=== PATIENT | female | born 1980 | race Caucasian/White ===

== ENCOUNTER 2017-01-05 17:21 | Emergency (ER) | payer OTHER, MEDICARE ==
[~2017-01-05] VITALS: Ht 162.6 cm; Wt 103.4 kg
[~2017-01-05 17:21] MED LIST: ADVAIR DISKU 11 UNIT; ASPIRIN EC81 M1 PO; ATIVAN1 M1 PO; BACLOFEN10 M1 PO; ESTRADIOL1 M1 PO; FAMOTIDINE20 MG PO; FLUTICASON0.05 MG/Ac NASB; HYDROXYZINE HCL50 M1 PO; IBUPROFEN IB200 MG PO; LIPITOR20 M2 PO; LOMOTIL 0.025 M1 TAB PO; MEDROL4 M2 PO; MOTRIN 600 MG600 MG; PERCOCET 325 MG1 TA2 PO; PERCOCET 5-3251 EACH PO; PREDNISONE10 M2 PO; PROAIR HFA8.5 GM INH; PROTONIX 40MG T40 MG; REGLAN10 M1 PO; SYMBICORT 160/41 PUF INH; TOPAMAX50 M1 PO; TOPROL XL25 MG; TRAMADOL50 MG PO; VICODIN 5-3001 EACH PO; VITAB121000 PO; VIVELLE-DO0.05 MG/24 TOP; ZOFRAN4 M2 PO
[2017-01-05 18:56] LABS: ABSOLUTE BASOPHIL COUNT 0 /CUMM (0.0-0.2); ABSOLUTE EOSINOPHIL COUNT 0.1 /CUMM (0.0-0.7); ABSOLUTE GRANULOCYTE CT 1.6 /CUMM (1.4-6.5); ABSOLUTE LYMPH COUNT 2.1 /CUMM (1.2-3.4); ABSOLUTE MONOCYTE COUNT 0.3 /CUMM (0.10-0.60); BASOPHIL % 0.5 % (0.0-2.0); EOSINOPHIL % 1.4 % (0-5); GRANULOCYTE % 38.3 % (42.2-75.2); HEMATOCRIT 41.8 % (37-47); MEAN CORPUSCULAR HGB 29.1 PG (27.0-31.0); MEAN CORPUSCULAR HGB CONC 33.2 G/DL (33.0-37.0); MEAN CORPUSCULAR VOLUME 87.8 FL (81.0-99.0); MEAN PLATELET VOLUME 8.2 FL (7.4-10.4); PLATELET COUNT 215 /CUMM (130-400); RBC DISTRIBUTION WIDTH 12.8 % (11.5-14.5); RED BLOOD CELL CT 4.76 /CUMM (4.20-5.40); WHITE BLOOD CELL COUNT 4.1 /CUMM (4.8-10.8)
[2017-01-05] MEDS ORDERED: TOPAMAX100 M1 PO (19:10)
[2017-01-05] MEDS ORDERED: ALBUTEROL2.5 MG/3 M INH/SOL (19:11)
[2017-01-05] MEDS ORDERED: MONTELUKAST SOD10 M1 PO (19:11)
[2017-01-05] MEDS ORDERED: TOPROL XL25 M1 PO (19:13)
[2017-01-05] MEDS ORDERED: GABAPENTIN300 M2 PO (19:14)
[2017-01-05] MEDS ORDERED: VITAJOY2.5 MG PO (19:14)
[2017-01-05] MEDS ORDERED: POLYETHYLENE GL17 GM PO (19:14)
[2017-01-05] MEDS ORDERED: COLACE100 M1 PO (19:14)
[2017-01-05] MEDS ORDERED: PANTOPRAZOLE SO40 M1 PO (19:14)
[2017-01-05] MEDS ORDERED: ATIVAN0.5 M1 PO (19:15)
[2017-01-05] MEDS ORDERED: HYDROCHLOROTH12.5 M2 PO (19:15)
[2017-01-05] MEDS ORDERED: PAROXETINE HCL40 M1 PO (19:15)
[2017-01-05] MEDS ORDERED: REGLAN5 M1 PO (19:16)
[2017-01-05] MEDS ORDERED: VITAMIN B-121000 MC3 PO (19:18)
--- NOTE | 2017-01-05 19:49 | ED GI/GU/ABDOMINAL COMPLAINT ---
History of Present Illness General Chief Complaint: Abdominal Pain/Flank Pain Stated Complaint: NO BM [id number] Source: patient, old records Exam Limitations: no limitations Vital Signs & Intake/Output Vital Signs & Intake/Output Vital Signs Date Time Temp Pulse Resp B/P B/P Pulse O2 O2 Flow FiO2 Mean Ox Delivery Rate 01/06 2128 98.0 88 18 110/56 99 Room Air 01/05 1956 69 18 104/51 100 Room Air 01/05 1856 Nasal 2.0L Cannula 01/05 1743 96.9 89 15 111/78 98 Room Air Room Air Allergies Coded Allergies: Penicillins (Intermediate, HIVES 01/05/17) amoxicillin (Intermediate, HIVES 01/05/17) lactose (Intermediate, HIVES, LACTOSE INTOLERANT 01/05/17) latex (Intermediate, HIVES 01/05/17) valacyclovir (From VALTREX) (Intermediate, HIVES 01/05/17) Reconcile Medications Albuterol Sulfate (Proair Hfa) 90 MCG HFA.AER.AD 2 PUF INH PRN ASTHMA ( Reported) Albuterol Sulfate 2.5 MG/3 ML (0.083 %) VIAL.NEB 1 Vial INH/KYE TID ASTHMA ( Reported) Aspirin (Ecotrin*) 81 MG TABLET.DR 1 TAB PO DAILY HEART/BLOOD (Reported) Atorvastatin Calcium (Lipitor) 20 MG TABLET 1 TAB PO DAILY CHOLESTEROL ( Reported) Cyanocobalamin (Vitamin B-12) 1,000 MCG TABLET 1 TAB PO DAILY SUPPLEMENT ( Reported) Docusate Sodium (Colace) 100 MG CAPSULE 1 CAP PO DAILY STOOL SOFTENER ( Reported) Gabapentin 300 MG CAPSULE 2 CAP PO TID SEIZURES & NEUROPATHY (Reported) Hydrochlorothiazide 12.5 MG TABLET 1 TAB PO DAILY BP (Reported) Lorazepam (Ativan) 0.5 MG TABLET 1 TAB PO DAILY NEEDED PRN ANXIETY ( Reported) Melatonin (Vitajoy) 2.5 MG TAB.CHEW 1 TAB PO QPM SUPPLEMENT (Reported) Meloxicam (Mobic) 15 MG TABLET 1 TAB PO DAILY PRN pain Metoclopramide HCl (Reglan) 5 MG TABLET 1 TAB PO TID N/V (Reported) Metoprolol Succ XL (Toprol XL) (Unknown Strength) TAB (Unknown Dose) PO TID BP (Reported) Montelukast Sodium 10 MG TABLET 1 TAB PO DAILY ALLERGIES (Reported) Pantoprazole Sodium 40 MG TABLET.DR 1 TAB PO DAILY GI (Reported) Paroxetine HCl 40 MG TABLET 1 TAB PO DAILY MENTAL HEALTH (Reported) Polyethylene Glycol 3350 17 GRAM POWD.PACK 1 PAC PO DAILY GI (Reported) Topiramate (Topamax) 100 MG TABLET 1 TAB PO BID SEIZURES & DEPRESSION ( Reported) Triage Note: PT TO ED FOR C/C OF RUQ AND RLQ ABD STABBING PAIN THAT STARTED 1 WEEK AGO (WAS SEEN AND DISCHARGED FROM [facility] ON FRIDAY), CONSTIPATION, HAS NOT HAD BM FOR 3 WEEKS. +NAUSEA, BURNING SENSATION THAT RADIATES FROM RUQ TO MIDEPIGASTRIC AREA, WORSE AFTER EATING. INCREASED URINATION. Triage Nurses Notes Reviewed? yes LMP (ages 10-50): hysterectomy ? N Is pt currently ? No Onset: Gradual Duration: week(s): Timing: recent history Quality/Severity: moderate, stabbing Location: right lower quadrant, right upper quadrant Prior Abdominal Problems: similar symptoms HPI: 36-year-old female with history of COPD on 2 L home oxygen, 2 MIs s/p stents, ovarian cancer s/p hysterectomy presents to emergency department complaining of right-sided abdominal pain 1 month. Abdominal pain is described as constant, sharp stabbing, located on her right side. The patient has been seen and evaluated at [facility] twice, she required admission on her second visit for abdominal pain. She has had 3 enemas this month which helped as she is not able to have a bowel movement at home without enemas. Patient had a small hard bowel movement this morning however she has not had a bowel movement on her own for 3 weeks prior, last bowel movement prior to today was 2 weeks ago with an enema. She is admitted at [facility] from December 31-, which time she states that they gave her IVFs and clear liquid diet and were unable to come to a conclusion about her abdominal pain. He was given a GI referral however her appointment is scheduled for 01/13/17 and has not been able to see the specialist. Following the IV fluids she got at [facility] reveals the patient feels as though her lower extremities have been swollen. She had a CT scan of her abdomen on January 02 which showed rectocele. The patient states that upon discharge her abdominal pain had been unchanged, patient is still currently unchanged. The patient denies fevers, chills, vaginal discharge, hematuria, dysuria, chest pain, dyspnea. (BOWEN FRITZ PA-C) Past History Travel History Traveled to [place] past 21 day No Medical History Any Pertinent Medical History? 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 No (BOWEN FRITZ PA-C) Review of Systems Review of Systems Constitutional: Reports: no symptoms. EENTM: Reports: no symptoms. Respiratory: Reports: no symptoms. Cardiovascular: Reports: no symptoms. GI: Reports: see HPI. Genitourinary: Reports: no symptoms. Musculoskeletal: Reports: no symptoms. Skin: Reports: no symptoms. Neurological/Psychological: Reports: no symptoms. Hematologic/Endocrine: Reports: no symptoms. Immunologic/Allergic: Reports: no symptoms. All Other Systems: Reviewed and Negative (BOWEN FRITZ PA-C) Physical Exam Physical Exam Gastrointestinal: SEE BELOW Comments: Well-developed well-nourished person in no acute distress HEENT: HEAD is atraumatic, normocephalic Neck: Supple, normal range of motion Back: Nontender, no CVA tenderness. Full range of motion Cardiovascular: Regular rate and rhythms no murmurs rubs or gallops Respiratory: No respiratory distress. Patient speaking in full complete sentences. Breath sounds clear to auscultation bilaterally: NO W/R/R Abdomen: Obese, Soft, nontender mild distention, no appreciable organomegaly. Normal bowel sounds. No rebound/guarding, No appreciable enlargement of the abdominal aorta, No ascites. Extremity: No edema, full range of motion of extremities Neuro: Alert oriented x3, motor sensory normal, There were no obvious focal neurologic abnormalities. Skin: No appreciable rash on exposed skin, skin is warm and dry. Psych: Mood and affect is normal, memory and judgment is normal. Core Measures ACS in differential dx? Yes Severe Sepsis Present: No Septic Shock Present: No (CATRINA BECKWITH,BOWEN KIMBALL) Progress Differential Diagnosis: AMI, appendicitis, biliary colic, bowel obstruction, cholecystitis, diverticulitis, endometritis, inflamm bowel dis, kidney stone, pancreatitis, PUD/GERD, SBO, UTI/pyelo Plan of Care: Orders Procedure Date/time Status URINE 01/05 1750 Complete URINALYSIS 01/05 1750 Complete TROPONIN LEVEL 01/05 1750 Complete LIPASE 01/05 1750 Complete COMPREHENSIVE METABOLIC PANEL 01/05 1750 Complete CBC WITHOUT DIFFERENTIAL 01/05 1750 Complete EKG 01/05 1750 Active Laboratory Tests 01/05/17 1900: Urine Color YEL, Urine Clarity CLEAR, Urine pH 6.0, Ur Specific [place] 1.025, Urine Protein NEG, Urine Ketones NEG, Urine Nitrite NEG, Urine Bilirubin NEG, Urine Urobilinogen 0.2, Ur Leukocyte Esterase NEG, Ur Microscopic SEDIMENT EXAMINED, Urine RBC 3-5, Urine WBC 1-3 H, Ur Epithelial Cells MANY H, Urine Mucus MANY H, Urine Hemoglobin TRACE-LYSED, Urine Glucose NEG, Urine Test NEGATIVE 01/05/17 1850: Anion Gap 11, Estimated GFR > 60, BUN/Creatinine Ratio 18.6, Glucose 92, Calcium 9.9, Total Bilirubin 0.7, AST 34, ALT 40, Alkaline Phosphatase 100, Troponin I < 0.01, Total Protein 6.8, Albumin 4.0, Globulin 2.8, Albumin/Globulin Ratio 1.4, Lipase 92, CBC w Diff NO MAN DIFF REQ, RBC 4.76, MCV 87.8, MCH 29.1, RDW 12.8, MPV 8.2, Gran % 38.3 L, Lymphocytes % 52.1 H, Monocytes % 7.7, Eosinophils % 1.4, Basophils % 0.5, Absolute Granulocytes 1.6, Absolute Lymphocytes 2.1, Absolute Monocytes 0.3, Absolute Eosinophils 0.1, Absolute Basophils 0, PUBS MCHC 33.[address] The patient recently had CT scan 3 days ago which was within normal limits at that and a rectocele per patient. The patient has been seen and evaluated several times for this abdominal pain over the past month, this abdominal pain is not acute. The patient has yet to see her GI referral, she has an appointment established for January 13. The patient has no abdominal tenderness on exam, she appears well, she is in no acute distress. Abdominal plain film shows nonobstructing gas and stool present. The patient is currently on Colace. The patient was discussed with Dr. Gaytan. We will add on MiraLAX as further laxative for constipation. The patient was educated to initiate a clear liquid drive for the next 24 hours to allow for bowel rest. She will call her GI referral for possible early appointment this week. She will return with any worsening symptoms or concerns. The patient is in agreement with the plan of care. (CATRINA BECKWITH,BOWEN KIMBALL) Diagnostic Imaging: Viewed by Me: Radiology Read. Discussed w/RAD: Radiology Read. Radiology Impression: PATIENT: AMANDA MARCIAL PRESENT AGE: 36 PATIENT ACCOUNT NO: [id number] : 82 LOCATION: [facility] ORDERING PHYSICIAN: BOWEN FRITZ PA-C SERVICE DATE: 01/05/17 EXAM TYPE: RAD - [id number] VIEW EXAMINATION: XR ABDOMEN CLINICAL INDICATION: Rule out constipation, bowel perforation. Infrequent bowel movements. Right abdominal pain. COMPARISON: CT abdomen pelvis 11/01/2015 TECHNIQUE: AP supine views of the abdomen. FINDINGS: Lung bases are clear. No evidence of pneumoperitoneum although only supine views were obtained. Cholecystectomy clips in the right upper quadrant. There is a paucity of abdominal bowel gas. Gas and stool are seen throughout the colon is far distally as the rectum. IMPRESSION: Nonobstructive abdominal bowel gas pattern. Evaluation for pneumoperitoneum is limited as only supine views were obtained. DICTATED BY: ALMA WATTS MD DATE/TIME DICTATED:01/05/172032 GRADUATION COACH:SATNAM DATE/TIME TRANSCRIBED:01/05/172032 CONFIDENTIAL, DO NOT COPY WITHOUT APPROPRIATE AUTHORIZATION. <Electronically signed in Other Vendor System> SIGNED BY: ALMA WATTS MD 01/05/172037 Initial ED EKG: none (CATRINA BECKWITH,BOWEN KIMBALL) Departure Departure Disposition: HOME OR SELF CARE Condition: Stable Clinical Impression Primary Impression: Constipation Secondary Impressions: Abdominal pain Referrals: DANIEL COULTER MD (PCP/Family) Additional Instructions: Continue to take Colace as prescribed. Additionally take over the counter MiraLAX daily as needed for constipation. Initiate a clear liquid diet for the next 24 hours. Take meloxicam as prescribed as needed for pain. Call your GI doctor tomorrow to try to move you appointment to this week, otherwise keep your scheduled appointment for January 13. Return with any worsening symptoms or concerns. Please note that there might be incidental findings in your evaluation that are unrelated to the current emergency department visit. Please notify your primary care doctor about this emergency department visit in order to obtain and review all of the testing performed so that these incidental findings can be monitored as needed. If you had an x-ray performed, please understand that some fractures may not be seen on the initial set of x-rays. If your symptoms persist you might need a repeat set of x-rays to check for such a fracture. If you had a laceration evaluated, please understand that foreign bodies such as glass or wood may not be visible to the naked eye or on plain x-rays. If the wound becomes red, swollen, increasingly more painful or if there is any drainage from the wound, please have it reevaluated by a physician for the possibility of a retained foreign body. If you're unable to follow up as outlined in the discharge instructions please return to the emergency department. Thank you for choosing the [facility] Emergency Department for your care. It was a pleasure to serve you today. Departure Forms: Customer Survey General Discharge Information Prescriptions: Current Visit Scripts Meloxicam (Mobic) 1 TAB PO DAILY PRN pain #15 TAB (CATRINA BECKWITH,BOWEN KIMBALL) PA/STONE DERRICKMAN AND RIGGER Co-Sign Statement Statement: ED Attending supervision documentation- [] I saw and evaluated the patient. I have also reviewed all the pertinent lab results and diagnostic results. I agree with the findings and the plan of care as documented in the PA's/STONE DERRICKMAN AND RIGGER's documentation. [X] I have reviewed the ED Record and agree with the PA's/STONE DERRICKMAN AND RIGGER's documentation. [] Additions or exceptions (if any) to the PAs/STONE DERRICKMAN AND RIGGER's note and plan are summarized below: [] (ESAU BARRIGA,JULES Stoll)
--- NOTE | 2017-01-05 20:38 | RADIOLOGY REPORT ---
EXAMINATION: XR ABDOMEN CLINICAL INDICATION: Rule out constipation, bowel perforation. Infrequent bowel movements. Right abdominal pain. COMPARISON: CT abdomen pelvis 11/01/2015 TECHNIQUE: AP supine views of the abdomen. FINDINGS: Lung bases are clear. No evidence of pneumoperitoneum although only supine views were obtained. Cholecystectomy clips in the right upper quadrant. There is a paucity of abdominal bowel gas. Gas and stool are seen throughout the colon is far distally as the rectum. IMPRESSION: Nonobstructive abdominal bowel gas pattern. Evaluation for pneumoperitoneum is limited as only supine views were obtained.
[2017-01-05] MEDS ORDERED: MOBIC15 M1 PO (21:23)
[2017-01-05 21:28] VITALS: BP 110/56
== END 2017-01-05 21:28 ==
LOC: ERH 17:21
PROVIDERS: Emergency Medicine
DX: K59.00 Constipation, unspecified (principal)
CPT/HCPCS: 74000; 81001; 81025; 93005; 93010

== ENCOUNTER 2017-06-24 17:04 | Emergency (ER) | payer OTHER ==
[~2017-06-24] VITALS: Ht 162.6 cm; Wt 108.9 kg
[~2017-06-24 17:04] MED LIST changes: +ALBUTEROL2.5 MG/3 M INH/SOL; +ATIVAN0.5 M1 PO; +CIPRODEX OTIC7.5 ML OT; +COLACE100 M1 PO; +DEXAMETHASONE2 M1 PO; +FLOVENT HFA12 GM INH; +GABAPENTIN300 M2 PO; +HYDROCHLOROTH12.5 M2 PO; +HYDROCHLOROTH12.5 M3 PO; +HYDROCHLOROTHIA25 M1 PO; +IBUPROFEN600 M1 PO; +KONSYL6 GM PO; +LAMOTRIGINE100 M2 PO; +LEVAQUIN500 M1 PO; +LOMOTIL 2.5-0.1 EACH PO; +MELOXICAM7.5 M1 PO; +MOBIC15 M1 PO; +MONTELUKAST SOD10 M1 PO; +NALTREXONE HCL50 M1 PO; +ONDANSETRON HCL8 MG PO; +PANTOPRAZOLE SO40 M1 PO; +PAROXETINE HCL40 M1 PO; +PATADAY2.5 ML OU; +POLYETHYLENE GL17 GM PO; +PROCTOSOL-HC28.35 GM RC; +QNASL8.7 GM NASB; +REGLAN5 M1 PO; +TIZANIDINE HCL2 M1 PO; +TOPAMAX100 M1 PO; +TOPROL XL25 M1 PO; +VITAJOY2.5 MG PO; +VITAMIN B-121000 MC3 PO
--- NOTE | 2017-06-24 20:17 | ED CARDIAC/CP/PALPITATIONS ---
History of Present Illness General Chief Complaint: General Adult Stated Complaint: CHEST PAIN,MARION,DRY COUGH Source: patient, old records Exam Limitations: no limitations Vital Signs & Intake/Output Vital Signs & Intake/Output Vital Signs Date Time Temp Pulse Resp B/P B/P Pulse O2 O2 Flow FiO2 Mean Ox Delivery Rate 06/24 2348 95.7 74 18 125/83 100 Room Air 06/24 1951 98.5 78 19 128/80 99 Room Air 06/24 1721 97.5 89 18 124/89 99 Room Air ED Intake and Output 06/25 0000 06/24 1200 Intake Total Output Total Balance Patient 240 lb Weight Weight Reported by Patient Measurement Method Allergies Coded Allergies: sertraline (From ZOLOFT) (Severe, THROAT CLOSES 03/23/17) Penicillins (Intermediate, HIVES 01/05/17) amoxicillin (Intermediate, HIVES 01/05/17) lactose (Intermediate, HIVES, LACTOSE INTOLERANT 01/05/17) latex (Intermediate, HIVES 01/05/17) valacyclovir (From VALTREX) (Intermediate, HIVES 01/05/17) Reconcile Medications Albuterol Sulfate (Proair Hfa) 90 MCG HFA.AER.AD 2 PUF INH PRN ASTHMA ( Reported) Albuterol Sulfate 2.5 MG/3 ML (0.083 %) VIAL.NEB 1 Vial INH/KYE Q8H PRN ASTHMA (Reported) Aspirin (Ecotrin*) 81 MG TABLET.DR 1 TAB PO DAILY HEART/BLOOD (Reported) Atorvastatin Calcium (Lipitor) 20 MG TABLET 1 TAB PO DAILY CHOLESTEROL ( Reported) Beclomethasone Dipropionate (Qnasl) 80 MCG/ACTUATION HFA.AER.AD 2 SPRAY NASB DAILY ALLERGIES (Reported) Ciprofloxacin HCl/Dexameth (Ciprodex Otic Suspension) 0.3 %-0.1 % DROPS.SUSP 4 GTT OT BID EAR NIFNECTION Cyanocobalamin (Vitamin B-12) 1,000 MCG TABLET 1 TAB PO DAILY SUPPLEMENT ( Reported) Dexamethasone 2 MG TABLET 1 TAB PO BID GI (Reported) Diphenoxylate HCl/Atropine (Lomotil 2.5-0.025 MG Tablet) 2.5 MG-0.025 MG TABLET 2 TAB PO BID GI (Reported) Docusate Sodium (Colace) 100 MG CAPSULE 1 CAP PO BID STOOL SOFTENER (Reported ) Fluticasone Propionate (Flovent Hfa) 220 MCG AER.W.ADAP 1 PUFF INH DAILY ASTHMA (Reported) Gabapentin 300 MG CAPSULE 2 CAP PO TID SEIZURES & NEUROPATHY (Reported) Hydrochlorothiazide 12.5 MG CAPSULE 1 CAP PO QPM DIURETIC (Reported) Hydrochlorothiazide 25 MG TABLET 1 TAB PO QAM DIURETIC (Reported) Hydrocodone/Acetaminophen ([place] 5-325 Tablet) 5 MG-325 MG TABLET 1-2 TAB PO Q4-6 PRN PRN pain Hydrocortisone (Proctosol-Hc) 2.5 % CREAM.APPL 1 KAYLIN RC TID HEMORRHOIDS ( Reported) apply to affected area(s) Ibuprofen 600 MG TABLET 1 TAB PO Q6H PRN PAIN (Reported) with food Lamotrigine 100 MG TABLET 1 TAB PO DAILY MENTAL HEALTH (Reported) Levofloxacin (Levaquin) 500 MG TABLET 1 TAB PO DAILY EAR IFNECTION Lorazepam (Ativan) 0.5 MG TABLET 1 TAB PO DAILY ANXIETY (Reported) Meloxicam 7.5 MG TABLET 1 TAB PO DAILY PAIN (Reported) Metoclopramide HCl (Reglan) 5 MG TABLET 1 TAB PO TID N/V (Reported) Metoprolol Succ XL (Toprol XL) (Unknown Strength) TAB (Unknown Dose) PO TID BP (Reported) Montelukast Sodium 10 MG TABLET 1 TAB PO DAILY ALLERGIES (Reported) Naltrexone HCl 50 MG TABLET 1 TAB PO DAILY UNKNOWN (Reported) Olopatadine HCl (Pataday) 0.2 % DROPS 1 GTT OU QAM BOTH EYES (Reported) Ondansetron HCl 8 MG TABLET 1 TAB PO Q8H PRN N/V (Reported) Oxycodone HCl/Acetaminophen (Percocet 5-325 MG Tablet) 5 MG-325 MG TABLET 1-2 TAB PO Q6P PRN PAIN Pantoprazole Sodium 40 MG TABLET.DR 1 TAB PO DAILY GI (Reported) Paroxetine HCl 40 MG TABLET 1 TAB PO DAILY MENTAL HEALTH (Reported) Polyethylene Glycol 3350 17 GRAM POWD.PACK 1 PAC PO DAILY GI (Reported) Psyllium Husk (Konsyl) (Unknown Strength) POWD.PACK (Unknown Dose) PO DAILY GI (Reported) Tizanidine HCl 2 MG TABLET 1 TAB PO Q8H MUSCLE SPASMS (Reported) Topiramate (Topamax) 100 MG TABLET 1 TAB PO BID SEIZURES & DEPRESSION ( Reported) Triage Note: PT TO ER C/C MID STERNAL CHEST PAIN RADIATING DOWN LEFT ARM X 1 DAY. +N/V. ADMITS MILD SOB. EKG COMPLETE UPON ARRIVAL TO ER Triage Nurses Notes Reviewed? yes Onset: Abrupt Duration: day(s): (1), constant, continues in ED Timing: recent history Quality/Severity: mild, moderate Location: substernal Radiation: arms (LEFT ) Activities at Onset: none Prior Chest Pain/Card Workup: cardiac cath (NORMAL IN 2013), heart attack, pulmonary embolism Modifying Factors: Worsens With: palpation. Nitro Today/Relief: no nitro taken today Aspirin Today: 325 mg x 1, provided by ED Associated Symptoms: shortness of breath LMP (ages 10-50): unknown : No Patient currently breastfeeds: No HPI: 36-year-old female has medical history of DVT, VA, COPD/asthma, cardiac arrest associated with anesthesia induction, hyperlipidemia presents for evaluation of chest pain. Patient states that symptoms started earlier today while she was at rest and the pain has been constant. The pain is located in the sternum and radiates to her left arm. She describes the pain as sharp/stabbing pain. She reports associated shortness of breath and a dry cough. No hemoptysis, sweats, chills, nausea, vomiting, fevers. She states that symptoms do not feel like previous VA. Symptoms are worse on exertion. She has not taken any medicine for this. She had a DVT 6 months ago and is not anticoagulated. She sees cardiology through [facility]. Pain has been constant since it started greater than 12 hours now. Patient had a cardiac catheter 2013 that was negative for any acute disease. Patient does report that she is on home oxygen at 3 L a minute 24 hours a day. She did not bring an oxygen bottle in she is not hypoxic or in respiratory distress or no. She says that she forgot to bring it. Patient also notes that she was seen at [facility] last month for similar symptoms. She states that she was admitted for observation but nothing was found. (Neo SAHU,Rajesh) Past History Travel History Traveled to [place] past 21 day No Medical History Any Pertinent Medical History? see below for history Neurological: SIMPLE SEIZURES PSEUDO SEIZURES EENT: NONE Cardiovascular: hyperlipidemia, myocardial infarction, NSTEMI, CARDIAC ARREST HYPOTENSION VA x2 cardiac arrest x2 palpitations heart murmur (REPORTED AFTER HYSTERECTOMY) Respiratory: asthma, COPD Gastrointestinal: GERD, irritable bowel syndrome, GASTRITIS rectal prolapse Hepatic: NONE Renal: UTI'S Musculoskeletal: NONE Psychiatric: depression, "MOOD DISORDER" anxiety Endocrine: HYPOGLYCEMIA(non-diabetic Blood Disorders: CHRONIC LEUKOCYTOSIS Cancer(s): ovarian cancer FAMILY DENTIST/Reproductive: bilateral 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 History of MRSA: No History of VRE: No History of CDIFF: No Surgical History Surgical History: appendectomy, cholecystectomy, , hysterectomy, oopherectommy hemorrhoid removal CARDIAC CATHETERIZATION 2014 - WNL Psychosocial History What is your primary language Nigerian Tobacco Use: Current Daily Use Daily Tobacco Use Amount/Type: =< 4 Cigarettes daily Family History Family History, If Any: Relation not specified for: Cervical cancer FH: diabetes mellitus FH: hypertension Heart attack Hx Contributory? No (Rajesh Desai) Review of Systems Review of Systems Constitutional: Reports: no symptoms. EENTM: Reports: no symptoms. Respiratory: Reports: see HPI, cough, short of breath. Cardiovascular: Reports: see HPI, chest pain. GI: Reports: no symptoms. Genitourinary: Reports: no symptoms. Musculoskeletal: Reports: no symptoms. Skin: Reports: no symptoms. Neurological/Psychological: Reports: no symptoms. Hematologic/Endocrine: Reports: no symptoms. Immunologic/Allergic: Reports: no symptoms. All Other Systems: Reviewed and Negative (Rajesh Desai) Physical Exam Physical Exam General Appearance: well developed/nourished, no apparent distress, alert, awake , obese Head: atraumatic, normal appearance Eyes: Bilateral: normal appearance, PERRL, EOMI. Ears, Nose, Throat: normal pharynx, normal ENT inspection, hearing grossly normal Neck: normal inspection, supple, full range of motion Respiratory: normal breath sounds, no respiratory distress, lungs clear, chest wall is tender to palpation over the sternum Cardiovascular: regular rate/rhythm, normal peripheral pulses Peripheral Pulses: 2+ radial (R), 2+ radial (L) Gastrointestinal: normal bowel sounds, soft, non-tender, no organomegaly Back: normal inspection, normal range of motion Extremities: normal inspection, normal range of motion, no edema Neurologic/Psych: no motor/sensory deficits, awake, alert, oriented x 3, normal gait Skin: intact, normal color, warm/dry Core Measures ACS in differential dx? Yes CVA/TIA Diagnosis No Sepsis Present: No Sepsis Focused Exam Completed? No (Neo SAHU,Rajesh) Progress Differential Diagnosis: AMI, aortic dissection, CHF/pulm edema, costochondritis, musculoskeletal pain, pericarditis, pneumonia, pneumothorax, PSVT, pulmonary embolism, PUD/GERD, respiratory failure, unstable angina Plan of Care: Orders Procedure Date/time Status TROPONIN LEVEL 06/24 2330 Complete EKG 06/24 2330 Active URINALYSIS 06/24 2018 Complete TROPONIN LEVEL 06/24 2018 Complete PARTIAL THROMBOPLASTIN TIME 06/24 2018 Complete PROTHROMBIN TIME 06/24 2018 Complete D-DIMER 06/24 2018 Complete COMPREHENSIVE METABOLIC PANEL 06/24 2018 Complete CBC WITHOUT DIFFERENTIAL 06/24 2018 Complete B-TYPE NATRIURETIC PEP (BNP) 06/24 2018 Complete EKG 06/24 1705 Active Laboratory Tests 06/25/17 0020: Troponin I < 0.01 06/24/172033: Urine Color YEL, Urine Clarity HAZY H, Urine pH 6.0, Ur Specific [place] >= 1.030, Urine Protein NEG, Urine Ketones NEG, Urine Nitrite POS H, Urine Bilirubin NEG, Urine Urobilinogen 0.2, Ur Leukocyte Esterase NEG, Ur Microscopic SEDIMENT EXAMINED, Urine RBC FEW H, Urine WBC 3-5 H, Ur Epithelial Cells FEW, Urine Bacteria MOD H, Urine Mucus MOD H, Urine Hemoglobin NEG, Urine Glucose NEG 06/24/172027: Anion Gap 15, Estimated GFR > 60, BUN/Creatinine Ratio 12.9, Glucose 96, Calcium 9.7, Total Bilirubin 0.6, AST 28, ALT 36, Alkaline Phosphatase 79, Troponin I < 0.01, Lzi-Y-Ygowoatqozt Pept 74.4, Total Protein 7.0, Albumin 4.4, Globulin 2.6, Albumin/Globulin Ratio 1.7, PT 10.8, INR 1.03, APTT 31, D-Dimer High Sensitivty < 200, CBC w Diff NO MAN DIFF REQ, RBC 5.04, MCV 86.7, MCH 29.3, RDW 13.4, MPV 8.0, Gran % 36.8 L, Lymphocytes % 53.2 H, Monocytes % 7.9, Eosinophils % 1.4, Basophils % 0.7, Absolute Granulocytes 1.7, Absolute Lymphocytes 2.4, Absolute Monocytes 0.4, Absolute Eosinophils 0.1, Absolute Basophils 0, PUBS MCHC 33.7 Patient seen and evaluated. She has a significant cardiac history of multiple MRIs. It is unclear the etiology. She had a cath in 2013 that was clean. It may be drug related. Vital signs are currently stable. Her chest wall is tender to palpation. Chest pain is not exertional. Patient will have labs including a d-dimer and EKG. Initial blood work is within normal limits including negative d-dimer. Chest x- ray is clear. We'll check a repeat EKG and troponin due to patient's history. Patient's ambulatory oxygen saturation remained stable. Pain does not get worse on exertion. Repeat EKG and troponin are negative. Vital signs are still stable patient is nontoxic-appearing she's been in the emergency department for 6 hours. Advised patient to rest Tylenol ibuprofen as needed for pain, norco for severe pain only. Patient will be referred to cardiology. I did also advise follow up with primary care doctor. Discussed return precautions in detail. Patient is nontoxic appearing agrees the plan. Case discussed with Dr. Gaspar she agrees. Diagnostic Imaging: Viewed by Me: Radiology Read. Discussed w/RAD: Radiology Read. CXR Impression: PATIENT: AMANDA MARCIAL PRESENT AGE: 36 PATIENT ACCOUNT NO: [id number] : 82 LOCATION: [facility] ORDERING PHYSICIAN: Rajesh SAHU SERVICE DATE: 06/24/17 EXAM TYPE: RAD - XRY-CHEST XRAY, TWO VIEWS EXAMINATION: XR CHEST CLINICAL INFORMATION: Chest pain. Shortness of breath. COMPARISON: Chest x-ray 03/17/2016 TECHNIQUE: 2 views of the chest were obtained. FINDINGS: No significant abnormality is noted involving the heart, lungs, mediastinum, bony thorax or soft tissues. IMPRESSION: Unremarkable examination. DICTATED BY: Dewayne Lima MD DATE/TIME DICTATED:06/24/172126 DYE MIXER:SATNAM DATE/TIME TRANSCRIBED:06/24/172126 CONFIDENTIAL, DO NOT COPY WITHOUT APPROPRIATE AUTHORIZATION. Initial ED EKG: normal sinus rhythm, no ST T wave changes Prior EKG: unchanged Repeat EKG: unchanged (Rajesh Desai) Departure Departure Disposition: HOME OR SELF CARE Condition: Stable Clinical Impression Primary Impression: Chest pain Qualifiers: Chest pain type: unspecified Qualified Code: R07.9 - Chest pain, unspecified Referrals: Abbey BARRIGA,Jo-Ann (PCP/Family) Miguel Lim MD Additional Instructions: Rest, avoid heavy lifting bending or excessive physical activity. [place] for severe pain only this may cause drowsiness. Make a follow-up with your primary care doctor and provided administrative officer as soon as possible. Monitor symptoms return with any concerns. Departure Forms: Customer Survey General Discharge Information Prescriptions: Current Visit Scripts Hydrocodone/Acetaminophen ([place] 5-325 Tablet) 1-2 TAB PO Q4-6 PRN PRN pain #10 TAB (Rajesh Desai) PA/SANITIZER Co-Sign Statement Statement: ED Attending supervision documentation- [] I saw and evaluated the patient. I have also reviewed all the pertinent lab results and diagnostic results. I agree with the findings and the plan of care as documented in the PA's/SANITIZER's documentation. [X] I have reviewed the ED Record and agree with the PA's/SANITIZER's documentation. [] Additions or exceptions (if any) to the PAs/SANITIZER's note and plan are summarized below: [] (Hubert BARRIGA,Sherry) Critical Care Note Critical Care Note Critical Care Time: non-applicable (Rajesh Desai)
[2017-06-24 20:36] LABS: ABSOLUTE BASOPHIL COUNT 0 /CUMM (0.0-0.2); ABSOLUTE EOSINOPHIL COUNT 0.1 /CUMM (0.0-0.7); ABSOLUTE GRANULOCYTE CT 1.7 /CUMM (1.4-6.5); ABSOLUTE LYMPH COUNT 2.4 /CUMM (1.2-3.4); ABSOLUTE MONOCYTE COUNT 0.4 /CUMM (0.10-0.60); BASOPHIL % 0.7 % (0.0-2.0); EOSINOPHIL % 1.4 % (0-5); GRANULOCYTE % 36.8 % (42.2-75.2); HEMATOCRIT 43.8 % (37-47); MEAN CORPUSCULAR HGB 29.3 PG (27.0-31.0); MEAN CORPUSCULAR HGB CONC 33.7 G/DL (33.0-37.0); MEAN CORPUSCULAR VOLUME 86.7 FL (81.0-99.0); PLATELET COUNT 287 /CUMM (130-400); RBC DISTRIBUTION WIDTH 13.4 % (11.5-14.5); RED BLOOD CELL CT 5.04 /CUMM (4.20-5.40); WHITE BLOOD CELL COUNT 4.6 /CUMM (4.8-10.8)
[2017-06-24 20:47] LABS: PT 10.8 SEC (9.4-12.5); PTT 31 SEC (25-37)
--- NOTE | 2017-06-24 21:31 | RADIOLOGY REPORT ---
EXAMINATION: XR CHEST CLINICAL INFORMATION: Chest pain. Shortness of breath. COMPARISON: Chest x-ray 03/17/2016 TECHNIQUE: 2 views of the chest were obtained. FINDINGS: No significant abnormality is noted involving the heart, lungs, mediastinum, bony thorax or soft tissues. IMPRESSION: Unremarkable examination.
[2017-06-24 23:48] VITALS: BP 125/83
[2017-06-25] MEDS ORDERED: NORCO 5-325 TA1 EACH PO (01:29)
== END 2017-06-25 02:04 ==
LOC: ERH 17:04
PROVIDERS: Physician Assistant Medical
DX: R07.89 Other chest pain (principal)
CPT/HCPCS: 71046; 81001; 93005; 93010

== ENCOUNTER 2017-08-13 04:09 | Observation (INO) | payer OTHER ==
[~2017-08-13] VITALS: Ht 162.6 cm; Wt 136.1 kg
[~2017-08-13 04:09] MED LIST changes: +NORCO 5-325 TA1 EACH PO
--- NOTE | 2017-08-13 04:14 | ED CARDIAC/CP/PALPITATIONS ---
History of Present Illness General Chief Complaint: Chest Pain Stated Complaint: CP Source: patient, EMS Exam Limitations: no limitations Vital Signs & Intake/Output Vital Signs & Intake/Output Vital Signs Date Time Temp Pulse Resp B/P B/P Pulse O2 O2 Flow FiO2 Mean Ox Delivery Rate 08/13 0606 97.3 62 18 104/69 98 Room Air 08/139 100 Nasal 3.0L Cannula 08/14 411 97.8 72 18 132/70 Nasal 3.0L Cannula Allergies Coded Allergies: sertraline (From ZOLOFT) (Severe, THROAT CLOSES 03/23/17) Penicillins (Intermediate, HIVES 01/05/17) amoxicillin (Intermediate, HIVES 01/05/17) lactose (Intermediate, HIVES, LACTOSE INTOLERANT 01/05/17) latex (Intermediate, HIVES 01/05/17) valacyclovir (From VALTREX) (Intermediate, HIVES 01/05/17) Reconcile Medications Albuterol Sulfate (Proair Hfa) 90 MCG HFA.AER.AD 2 PUF INH PRN ASTHMA ( Reported) Albuterol Sulfate 2.5 MG/3 ML (0.083 %) VIAL.NEB 1 Vial INH/YKE Q8H PRN ASTHMA (Reported) Aspirin (Ecotrin*) 81 MG TABLET.DR 1 TAB PO DAILY HEART/BLOOD (Reported) Atorvastatin Calcium (Lipitor) 20 MG TABLET 1 TAB PO DAILY CHOLESTEROL ( Reported) Beclomethasone Dipropionate (Qnasl) 80 MCG/ACTUATION HFA.AER.AD 2 SPRAY NASB DAILY ALLERGIES (Reported) Ciprofloxacin HCl/Dexameth (Ciprodex Otic Suspension) 0.3 %-0.1 % DROPS.SUSP 4 GTT OT BID EAR NIFNECTION Cyanocobalamin (Vitamin B-12) 1,000 MCG TABLET 1 TAB PO DAILY SUPPLEMENT ( Reported) Dexamethasone 2 MG TABLET 1 TAB PO BID GI (Reported) Diphenoxylate HCl/Atropine (Lomotil 2.5-0.025 MG Tablet) 2.5 MG-0.025 MG TABLET 2 TAB PO BID GI (Reported) Docusate Sodium (Colace) 100 MG CAPSULE 1 CAP PO BID STOOL SOFTENER (Reported ) Fluticasone Propionate (Flovent Hfa) 220 MCG AER.W.ADAP 1 PUFF INH DAILY ASTHMA (Reported) Gabapentin 300 MG CAPSULE 2 CAP PO TID SEIZURES & NEUROPATHY (Reported) Hydrochlorothiazide 12.5 MG CAPSULE 1 CAP PO QPM DIURETIC (Reported) Hydrochlorothiazide 25 MG TABLET 1 TAB PO QAM DIURETIC (Reported) Hydrocodone/Acetaminophen (Icard 5-325 Tablet) 5 MG-325 MG TABLET 1-2 TAB PO Q4-6 PRN PRN pain Hydrocortisone (Proctosol-Hc) 2.5 % CREAM.APPL 1 KAYLIN RC TID HEMORRHOIDS ( Reported) apply to affected area(s) Ibuprofen 600 MG TABLET 1 TAB PO Q6H PRN PAIN (Reported) with food Lamotrigine 100 MG TABLET 1 TAB PO DAILY MENTAL HEALTH (Reported) Levofloxacin (Levaquin) 500 MG TABLET 1 TAB PO DAILY EAR IFNECTION Lorazepam (Ativan) 0.5 MG TABLET 1 TAB PO DAILY ANXIETY (Reported) Meloxicam 7.5 MG TABLET 1 TAB PO DAILY PAIN (Reported) Metoclopramide HCl (Reglan) 5 MG TABLET 1 TAB PO TID N/V (Reported) Metoprolol Succ XL (Toprol XL) (Unknown Strength) TAB (Unknown Dose) PO TID BP (Reported) Montelukast Sodium 10 MG TABLET 1 TAB PO DAILY ALLERGIES (Reported) Naltrexone HCl 50 MG TABLET 1 TAB PO DAILY UNKNOWN (Reported) Olopatadine HCl (Pataday) 0.2 % DROPS 1 GTT OU QAM BOTH EYES (Reported) Ondansetron HCl 8 MG TABLET 1 TAB PO Q8H PRN N/V (Reported) Oxycodone HCl/Acetaminophen (Percocet 5-325 MG Tablet) 5 MG-325 MG TABLET 1-2 TAB PO Q6P PRN PAIN Pantoprazole Sodium 40 MG TABLET.DR 1 TAB PO DAILY GI (Reported) Paroxetine HCl 40 MG TABLET 1 TAB PO DAILY MENTAL HEALTH (Reported) Polyethylene Glycol 3350 17 GRAM POWD.PACK 1 PAC PO DAILY GI (Reported) Psyllium Husk (Konsyl) (Unknown Strength) POWD.PACK (Unknown Dose) PO DAILY GI (Reported) Tizanidine HCl 2 MG TABLET 1 TAB PO Q8H MUSCLE SPASMS (Reported) Topiramate (Topamax) 100 MG TABLET 1 TAB PO BID SEIZURES & DEPRESSION ( Reported) Triage Nurses Notes Reviewed? yes Onset: Abrupt Duration: hour(s): Timing: recent history Location: central Radiation: bilateral arms Activities at Onset: none Associated Symptoms: chest pain : No Patient currently breastfeeds: No HPI: 36 YO WOMAN h/o [place] in 2006, cardiac arrest x2 (2012, 2015 related to anesthesia), negative cardiac cath 2016 ([facility]) presents with 10/10 chest pain x 1 hour, radiating down both arms, associated with shortness of breath. No fever, chills, diaphoresis, abdominal pain, wheezing. Past History Travel History Traveled to [place] past 21 day No Medical History Any Pertinent Medical History? 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 No Review of Systems Review of Systems Constitutional: Reports: no symptoms. EENTM: Reports: no symptoms. Respiratory: Reports: no symptoms. Cardiovascular: Reports: no symptoms. GI: Reports: no symptoms. Genitourinary: Reports: no symptoms. Musculoskeletal: Reports: no symptoms. Skin: Reports: no symptoms. Neurological/Psychological: Reports: no symptoms. Hematologic/Endocrine: Reports: no symptoms. Immunologic/Allergic: Reports: no symptoms. All Other Systems: Reviewed and Negative Physical Exam Physical Exam General Appearance: well developed/nourished, mild distress Head: atraumatic, normal appearance Eyes: Bilateral: normal appearance, PERRL, EOMI. Ears, Nose, Throat: normal pharynx, normal ENT inspection Neck: normal inspection, supple, full range of motion, JVD Respiratory: normal breath sounds, chest non-tender, no respiratory distress, quiet respiration, lungs clear Cardiovascular: regular rate/rhythm Gastrointestinal: normal bowel sounds, soft, non-tender, no organomegaly Back: normal inspection, normal range of motion Extremities: normal inspection, normal capillary refill, normal range of motion, no edema Neurologic/Psych: no motor/sensory deficits, awake, alert, oriented x 3 Skin: intact, normal color, warm/dry Core Measures ACS in differential dx? No CVA/TIA Diagnosis No Sepsis Present: No Sepsis Focused Exam Completed? No Progress Differential Diagnosis: AMI, unstable angina Plan of Care: Orders Procedure Date/time Status TROPONIN LEVEL 08/13 413 Complete PARTIAL THROMBOPLASTIN TIME 08/13 413 Complete PROTHROMBIN TIME 08/13 413 Complete LIPASE 08/13 413 Complete HEPATIC FUNCTION PANEL 08/13 413 Complete D-DIMER 08/13 413 Complete CBC WITHOUT DIFFERENTIAL 08/13 413 Complete BASIC METABOLIC PANEL 08/13 413 Complete AMYLASE 08/13 413 Complete EKG 08/13 413 Active Laboratory Tests 08/13/17 0425: Anion Gap 9, Estimated GFR > 60, BUN/Creatinine Ratio 22.5, Glucose 96, Calcium 9.0, Total Bilirubin 0.5, Direct Bilirubin 0.3, AST 25, ALT 22, Alkaline Phosphatase 78, Troponin I < 0.01, Total Protein 6.3, Albumin 3.7, Amylase 38, Lipase 150, PT 9.8, INR 0.90, APTT 28, D-Dimer High Sensitivty < 200, CBC w Diff MAN DIFF ORDERED, RBC 4.47, MCV 85.5, MCH 28.7, MCHC 33.6, RDW 13.2, MPV 8.1, Gran % 31.1 L, Lymphocytes % 57.0 H, Monocytes % 9.4 H, Eosinophils % 1.9, Basophils % 0.6, Absolute Granulocytes 1.7, Segmented Neutrophils 27 L, Absolute Lymphocytes 3.2, Lymphocytes 61 H, Monocytes 10 H, Absolute Monocytes 0.5, Eosinophils 2, Absolute Eosinophils 0.1, Absolute Basophils 0, Platelet Estimate ADEQUATE, Normocytic RBCs VERIFIED, Normochromic RBCs VERIFIED Diagnostic Imaging: Viewed by Me: CT Scan. Discussed w/RAD: CT Scan. Radiology Impression: PATIENT: AMANDA MARCIAL PRESENT AGE: 36 PATIENT ACCOUNT NO: [id number] : 82 LOCATION: [facility] ORDERING PHYSICIAN: Clyde Grullon MD SERVICE DATE: 08/13/176409 EXAM TYPE: CAT - CTA CHEST-PULMONARY EMBOLISM EXAMINATION: CT ANGIOGRAM OF THE CHEST WITH AND WITHOUT CONTRAST (CT PULMONARY ANGIOGRAM FOR PE) CLINICAL INFORMATION: Reason for Study:
Presumptive Dx: CHEST PAIN, pe X 2
Signs Symptoms: CHEST PAIN.... 12
COMPARISON: 09/16/2015 TECHNIQUE: Prior to contrast administration, noncontrast localization images were obtained. Subsequently, multidetector volumetric imaging was performed from the thoracic inlet to below the diaphragms following the administration of 86 mL Optiray 350 intravenous contrast. No contrast reaction reported. Sagittal, coronal, and MIP oblique sagittal reformatted images were obtained on the CT workstation, uploaded to PACS, and reviewed. Total exam dose-length product 483.51 mGy-cm. FINDINGS: QUALITY OF STUDY/CONTRAST BOLUS: Satisfactory PULMONARY ARTERIES: No central or segmental pulmonary emboli. THORACIC AORTA: No aneurysm or dissection. LUNG: There is minimal atelectasis bilaterally. No additional consolidations. PLEURA: No pleural effusion or pneumothorax. MEDIASTINUM: The visualized thyroid gland is unremarkable. There are subcentimeter mediastinal lymph nodes within the range of normal variation. Cardiac size is within normal limits; no pericardial effusion. No evidence of septal bowing or right heart strain. CHEST WALL/AXILLA: No axillary or internal mammary lymphadenopathy. OSSEOUS STRUCTURES: No acute or suspicious osseous abnormality. UPPER ABDOMEN: Patient is status post cholecystectomy. No reflux of contrast into the hepatic veins to suggest elevated right heart pressures. IMPRESSION: No evidence of pulmonary embolus or other acute intrathoracic findings. VTE: negative DICTATED BY: Joshua Swanson MD DATE/TIME DICTATED:08/13/17545 SALES SERVICE ASSISTANT:SATNAM DATE/TIME TRANSCRIBED:08/13/17545 CONFIDENTIAL, DO NOT COPY WITHOUT APPROPRIATE AUTHORIZATION. <Electronically signed in Other Vendor System> SIGNED BY: Joshua Swanson MD 08/13/17 0558 Initial ED EKG: normal axis, normal intervals, normal p-waves, normal QRS complex, normal sinus rhythm Departure Departure Disposition: STILL A PATIENT Condition: Stable Clinical Impression Primary Impression: Chest pain Referrals: Jo-Ann Potter MD (PCP/Family) Departure Forms: Customer Survey General Discharge Information Comments 3, 4:44.... Pt went from 03/18 cp to 02/16 after one nitro... will give nitro #2 w/ paste, acetaminophen for rebound headache 08/13/17, 5:49am... discussed with dr. rodriguez who will evaluate pt in am... pt to go to hospitalist service. Observation Note Spoke With: Wilder BARRIGA,[facility] Physician Advisor Notified: ESAU BARRIGA,JULES [address] Patient In: Non-ED OBS Care Area Rationale for Observation: My rational for observation is as follows . pt with significant cardiac history ([place], cardiac arrest x 2)... merits serial troponins and cards eval in AM. Critical Care Note Critical Care Note Critical Care Time: non-applicable
[2017-08-13 04:36] LABS: ABSOLUTE BASOPHIL COUNT 0 /CUMM (0.0-0.2); ABSOLUTE EOSINOPHIL COUNT 0.1 /CUMM (0.0-0.7); ABSOLUTE GRANULOCYTE CT 1.7 /CUMM (1.4-6.5); ABSOLUTE LYMPH COUNT 3.2 /CUMM (1.2-3.4); ABSOLUTE MONOCYTE COUNT 0.5 /CUMM (0.10-0.60); BASOPHIL % 0.6 % (0.0-2.0); EOSINOPHIL % 1.9 % (0-5); GRANULOCYTE % 31.1 % (42.2-75.2); HEMATOCRIT 38.2 % (37-47); MEAN CORPUSCULAR HGB 28.7 PG (27.0-31.0); MEAN CORPUSCULAR HGB CONC 33.6 G/DL (33.0-37.0); MEAN CORPUSCULAR VOLUME 85.5 FL (81.0-99.0); MEAN PLATELET VOLUME 8.1 FL (7.4-10.4); PLATELET COUNT 244 /CUMM (130-400); RBC DISTRIBUTION WIDTH 13.2 % (11.5-14.5); RED BLOOD CELL CT 4.47 /CUMM (4.20-5.40); WHITE BLOOD CELL COUNT 5.6 /CUMM (4.8-10.8)
[2017-08-13 04:53] LABS: PT 9.8 SEC (9.4-12.5); PTT 28 SEC (25-37)
--- NOTE | 2017-08-13 05:58 | CT SCAN REPORT ---
EXAMINATION: CT ANGIOGRAM OF THE CHEST WITH AND WITHOUT CONTRAST (CT PULMONARY ANGIOGRAM FOR PE) CLINICAL INFORMATION: Reason for Study:
Presumptive Dx: CHEST PAIN, pe X 2
Signs Symptoms: CHEST PAIN.... 12
COMPARISON: 09/16/2015 TECHNIQUE: Prior to contrast administration, noncontrast localization images were obtained. Subsequently, multidetector volumetric imaging was performed from the thoracic inlet to below the diaphragms following the administration of 86 mL Optiray 350 intravenous contrast. No contrast reaction reported. Sagittal, coronal, and MIP oblique sagittal reformatted images were obtained on the CT workstation, uploaded to PACS, and reviewed. Total exam dose-length product 483.51 mGy-cm. FINDINGS: QUALITY OF STUDY/CONTRAST BOLUS: Satisfactory PULMONARY ARTERIES: No central or segmental pulmonary emboli. THORACIC AORTA: No aneurysm or dissection. LUNG: There is minimal atelectasis bilaterally. No additional consolidations. PLEURA: No pleural effusion or pneumothorax. MEDIASTINUM: The visualized thyroid gland is unremarkable. There are subcentimeter mediastinal lymph nodes within the range of normal variation. Cardiac size is within normal limits; no pericardial effusion. No evidence of septal bowing or right heart strain. CHEST WALL/AXILLA: No axillary or internal mammary lymphadenopathy. OSSEOUS STRUCTURES: No acute or suspicious osseous abnormality. UPPER ABDOMEN: Patient is status post cholecystectomy. No reflux of contrast into the hepatic veins to suggest elevated right heart pressures. IMPRESSION: No evidence of pulmonary embolus or other acute intrathoracic findings. VTE: negative
--- NOTE | 2017-08-13 08:31 | History & Physical ---
Aarti Lopez 08/13/17 3183: General Information and HPI MD Statement: I have seen and personally examined AMANDA MARCIAL and documented this H&P. The patient is a 36 year old F who presented with a patient stated chief complaint of [chest pain]. Source of Information: patient, old records Exam Limitations: no limitations History of Present Illness: 36-year-old woman presented to the emergency room complaining of chest pain. She has a history of hypertension, hyperlipidemia, and prior cardiac arrest in 2013, advanced COPD on oxygen, persistent GERD with an unclear diagnosis on proton next and dexamethasone, depression, polysubstance abuse ( quit 9 years ago), hypothyroidism and chronic lower extremity edema, bipolar disorder and nonconvulsive seizure . Chest Pain is started last night around 11 PM while she was watching TV; sharp 7 out of 10,retrosternal pain radiating to both arms. Accompanied with cough, Palpitation, feeling clammy. Denies lightheadedness, dizziness, loss of consciousness. Laying flat on her back and improved the pain and sitting upright worsens the pain. Exertion expectedly worsens the pain; she took 4 tablets of aspirin 81 mg and Protonix before going to bed. Around 3 AM patient woke up with severe 10 out of 10 pain with the aforementioned characteristics. She was concerned and decided to come to the emergency room to seek medical attention. In the ED vital signs were stable patient was given some lingual nitrates which decreased the pain by 10%. Currently chest pain is toward 3 out of 10 with the same characteristics. On a side note, patient has a history of persistent gastroesophageal reflux disease and intermittent dysphagia that she describes as " food is stocks in my throat". She was seen initially years ago in [place] and underwent an upper GI endoscopy. According to patient the results were inconclusive and she did not follow with double needle operator. She started seeing Dr. Garrison a while ago and has been taking Protonix for her reflux and the aforementioned symptom with minimal improvement. Additionally, patient mentions that her primary care physician (Dr. Everardo Uribe) started her on dexamethasone for some inflammatory condition in her GI system??? (Medical records are not available for review). Her last visit with Dr. Garrison the past about 3 weeks ago for her ongoing diarrhea. According to patient stool samples were sent. She also has a history of internal hemorrhoids which is currently active. She sees Dr. Hendrickson for her advanced COPD asthma overlap syndrome and follow-up with Dr. Toure for nonconvulsive seizure disorder. Allergies/Medications Allergies: Coded Allergies: sertraline (From ZOLOFT) (Severe, THROAT CLOSES 03/23/17) Penicillins (Intermediate, HIVES 01/05/17) amoxicillin (Intermediate, HIVES 01/05/17) lactose (Intermediate, HIVES, LACTOSE INTOLERANT 01/05/17) latex (Intermediate, HIVES 01/05/17) valacyclovir (From VALTREX) (Intermediate, HIVES 01/05/17) Home Med list Albuterol Sulfate (Proair Hfa) 90 MCG HFA.AER.AD 2 PUF INH PRN ASTHMA ( Reported) Albuterol Sulfate 2.5 MG/3 ML (0.083 %) VIAL.NEB 1 Vial INH/KYE Q8H PRN ASTHMA (Reported) Aspirin (Ecotrin*) 81 MG TABLET.DR 1 TAB PO DAILY HEART/BLOOD (Reported) Atorvastatin Calcium (Lipitor) 20 MG TABLET 1 TAB PO DAILY CHOLESTEROL ( Reported) Beclomethasone Dipropionate (Qnasl) 80 MCG/ACTUATION HFA.AER.AD 2 SPRAY NASB DAILY ALLERGIES (Reported) Ciprofloxacin HCl/Dexameth (Ciprodex Otic Suspension) 0.3 %-0.1 % DROPS.SUSP 4 GTT OT BID EAR NIFNECTION Cyanocobalamin (Vitamin B-12) 1,000 MCG TABLET 1 TAB PO DAILY SUPPLEMENT ( Reported) Dexamethasone 2 MG TABLET 1 TAB PO BID GI (Reported) Diphenoxylate HCl/Atropine (Lomotil 2.5-0.025 MG Tablet) 2.5 MG-0.025 MG TABLET 2 TAB PO BID GI (Reported) Docusate Sodium (Colace) 100 MG CAPSULE 1 CAP PO BID STOOL SOFTENER (Reported ) Gabapentin 100 MG CAPSULE 1 CAP PO TID pain (Reported) Hydrochlorothiazide 12.5 MG CAPSULE 1 CAP PO QPM DIURETIC (Reported) Hydrochlorothiazide 25 MG TABLET 1 TAB PO QAM DIURETIC (Reported) Hydrocortisone (Proctosol-Hc) 2.5 % CREAM.APPL 1 KAYLIN RC TID HEMORRHOIDS ( Reported) apply to affected area(s) Lamotrigine 100 MG TABLET 1 TAB PO DAILY MENTAL HEALTH (Reported) Lorazepam (Ativan) 0.5 MG TABLET 1 TAB PO DAILY ANXIETY (Reported) Meloxicam 7.5 MG TABLET 1 TAB PO DAILY PAIN (Reported) Metoclopramide HCl (Reglan) 5 MG TABLET 1 TAB PO TID N/V (Reported) Metoprolol Succ XL (Toprol XL) (Unknown Strength) TAB 100 MG PO DAILY HTN ( Reported) Montelukast Sodium 10 MG TABLET 1 TAB PO DAILY ALLERGIES (Reported) Olopatadine HCl (Pataday) 0.2 % DROPS 1 GTT OU QAM BOTH EYES (Reported) Pantoprazole Sodium 40 MG TABLET.DR 1 TAB PO DAILY GI (Reported) Paroxetine HCl 40 MG TABLET 1 TAB PO DAILY MENTAL HEALTH (Reported) Polyethylene Glycol 3350 17 GRAM POWD.PACK 1 PAC PO DAILY GI (Reported) Psyllium Husk (Konsyl) (Unknown Strength) POWD.PACK (Unknown Dose) PO DAILY GI (Reported) Tizanidine HCl 2 MG TABLET 1 TAB PO Q8H MUSCLE SPASMS (Reported) Topiramate (Topamax) 100 MG TABLET 1 TAB PO BID SEIZURES & DEPRESSION ( Reported) Compliance With Home Meds: POOR Past History Travel History Traveled to [place] past 21 day No Medical History Neurological: SIMPLE SEIZURES PSEUDO SEIZURES EENT: NONE Cardiovascular: hyperlipidemia, myocardial infarction, NSTEMI, CARDIAC ARREST HYPOTENSION ND x2 cardiac arrest x2 palpitations heart murmur (REPORTED AFTER HYSTERECTOMY) Respiratory: asthma, COPD Gastrointestinal: GERD, irritable bowel syndrome, GASTRITIS rectal prolapse Hepatic: NONE Renal: UTI'S Musculoskeletal: NONE Psychiatric: depression, "MOOD DISORDER" anxiety Endocrine: HYPOGLYCEMIA(non-diabetic Blood Disorders: CHRONIC LEUKOCYTOSIS Cancer(s): ovarian cancer 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 Ambulation: independent IADLs Independent: shopping, housework, finances, food prep, telephone, transportation , medication admin. Review of Systems Review of Systems Constitutional: Reports: see HPI. Cardiovascular: Reports: see HPI, chest pain, edema. Denies: orthopena, palpitations, peripheral edema, syncope. GI: Reports: see HPI, constipation, diarrhea, changes in stool. Denies: abdominal pain, bloating, distention, bowel incontinence, nausea, vomiting, steatorrhea. Genitourinary: Reports: see HPI. Musculoskeletal: Reports: see HPI. Skin: Reports: see HPI. Neurological/Psychological: Reports: see HPI. Hematologic/Endocrine: Reports: see HPI. Immunologic/Allergic: Reports: other (extensive allergy profile). All Other Systems: Reviewed and Negative Exam & Diagnostic Data Last 24 Hrs of Vital Signs/I&O Vital Signs Date Time Temp Pulse Resp B/P B/P Pulse O2 O2 Flow FiO2 Mean Ox Delivery Rate 08/13 0740 68 18 110/71 100 08/13 0606 97.3 62 18 104/69 98 Room Air 08/13 0419 100 Nasal 3.0L Cannula 08/13 0412 97.8 72 18 132/70 Nasal 3.0L Cannula Intake & Output 08/13 1600 08/13 0800 08/13 0000 Intake Total Output Total Balance Patient 300 lb Weight Weight Reported by Patient Measurement Method Physical Exam General Appearance Alert, Oriented X3, Cooperative, No Acute Distress Skin No Rashes, No Breakdown, No Significant Lesion HEENT PERRLA, EOMI Neck No JVD Lymphatic Axillary nl, Cervical nl Cardiovascular Normal S1, Normal S2, No Murmurs Lungs Clear to Auscultation, Normal Air Movement Abdomen Soft, No Tenderness, No Hepatospenomegaly Neurological Normal Speech, Strength at 5/5 X4 Ext Extremities No Clubbing Vascular Normal Pulses Rectal Internal hemorrhoid active bleeding Last 24 Hrs of Labs/Tomi: Laboratory Tests 08/13/17 8485: Anion Gap 9, Estimated GFR > 60, BUN/Creatinine Ratio 22.5, Glucose 96, Calcium 9.0, Total Bilirubin 0.5, Direct Bilirubin 0.3, AST 25, ALT 22, Alkaline Phosphatase 78, Troponin I < 0.01, Total Protein 6.3, Albumin 3.7, Amylase 38, Lipase 150, PT 9.8, INR 0.90, APTT 28, D-Dimer High Sensitivty < 200, CBC w Diff MAN DIFF ORDERED, RBC 4.47, MCV 85.5, MCH 28.7, MCHC 33.6, RDW 13.2, MPV 8.1, Gran % 31.1 L, Lymphocytes % 57.0 H, Monocytes % 9.4 H, Eosinophils % 1.9, Basophils % 0.6, Absolute Granulocytes 1.7, Segmented Neutrophils 27 L, Absolute Lymphocytes 3.2, Lymphocytes 61 H, Monocytes 10 H, Absolute Monocytes 0.5, Eosinophils 2, Absolute Eosinophils 0.1, Absolute Basophils 0, Platelet Estimate ADEQUATE, Normocytic RBCs VERIFIED, Normochromic RBCs VERIFIED Diagnostic Data EKG Results Normal sinus rate and rhythm 68 beats per minutes Normal axis No change in ST segment; tall and slightly peaked T waves FL interval QT interval QTC within normal limits Other Results CTA of the chest: Negative Assessment/Plan Assessment: This is a 36-year-old woman with multiple comorbidities and significant past medical history was admitted for atypical chest pain. Patient states the Negative d-dimer First set of troponin on 4:25 AM was 0.01----> repeat troponin at 9 and the third troponin at noon. CTA of the chest was negative C BC: normal; BEP: normal; List of problems #1 atypical chest pain with seemingly normal EKG and limited exercise capacity and considerable family history of her mature coronary artery disease. No recent history of immobility (insignificant Wells a score) coupled with a negative d-dimer and negative CTA which effectively ruled out the possibility of pulmonary embolism. Reflux, pneumothorax, otherwise no bleed, aortic dissection , costochondritis, pericarditis has been effectively ruled out by HPI sinus symptoms and initial workup in the ED. Cardiac enzymes are negative and there is no ischemic change in EKG. However patient has a significant past medical history and family history of premature coronary artery disease. The setting of her atypical chest pain she needs stress imaging of her heart. Advanced COPD and limited exercise capacity, her gender and age limits the option to dobutamine echo or dobutamine nuclear stress test. other, possibility for this patient is to do cardiac catheterization if you deem necessary by electronics engineer. He received loading dose of aspirin in ED. Continue aspirin 81 mg, increase the dose of Lipitor from home dose of 20 mg to 40, for appropriate high intensity statin therapy. Chronic medical conditions #2 nonconvulsive seizure #3 chronic, persistent GERD in the setting of significant allergy suggestive of drowsiness celiac esophagitis #4 advanced COPD asthma overlap syndrome #5 neuropatic pain #6 steroid dependence #7 depression and generalized anxiety disorder #8 constipation #9 internal hemorrhoidal bleeding #10 chronic diarrheachronic #11 lower extremity edema Plan * Admit to telemetry for continuous cardiac monitoring * Patient saw Dr. Adam 2 years ago and was to see Dr. Sosa again * With holding echo; considering the possibility of pharmacological stress test with echo * Trending troponin at 9 AM at noon rule out ACS * Nitrate sublingual for pain every 5 minutes maximum 3 tablets * Resume her metoprolol succinate 100 mg daily * TRC never [id number] as needed * Continue her home nebulizer * Continue Montelukast * Oxygen set up targets oxygen saturation more than 90% and titrate as tolerated * Resume atorvastatin and Protonix * For bowel regimen * Prep H for hemorrohidal bleeding * Continue hydrochlorothiazide 12.5 mg daily * Resume gabapentin 100 mg 3 times a day * Resume Ativan 0.5 mg daily * Resume paroxetine 40 mg daily * Resume lamotrigine and Topamax * Obtain records from PCP, side trimmer, and neurologists office * Inform Dr. Garrison DVT prophylaxis-Lovenox 40 units subcutaneous daily Alps Proper pain pathway As Ranked By This Provider Problem List: 1. GERD (gastroesophageal reflux disease) 2. Constipation 3. Chest pain, atypical Core Measures/Misc (02/23) Acute Coronary Syndrome ACS Diagnosis: No Congestive Heart Failure Congestive Heart Failure Diagnosis No Cerebrovascular Accident CVA/TIA Diagnosis: No VTE (View Protocol) VTE Risk Factors Age>40 No Mechanical VTE Prophylaxis d/t N/A MechProphylax Ordered No VTE Pharm Prophylaxis d/t NA PharmProphylax ordered Sepsis (View protocol) Sepsis Present: No Resident Review Statement Resident Statement: examined this patient, discussed with internal communications specialist, agreed with internal communications specialist, discussed with family, reviewed EMR data (avail), discussed with nursing , discussed with case mgmt, reviewed images, amended to note Sola Barrios MD 08/13/17 1528: Attending MD Review Statement Attending Statement Attending MD Statement: examined this patient, discuss w/resident/PA/SHEET METAL INSTALLER, agreed w/resident/PA/SHEET METAL INSTALLER, reviewed EMR data (avail), discussed with nursing, amended to note Attending Assessment/Plan: Patient seen and examined. Resting comfortably not in any acute distress. She is hemodynamically stable. She is saturating 100% on 3 L oxygen. She reports intermittent episodes of chest discomfort. She reports that the symptoms are not new. She reports on occasion she has difficulty swallowing food. She reports tolerating her meals today. On examination she is not in any distress. Heart sounds are regular. Lungs are clear bilaterally. Abdomen is soft and nontender. She has no peripheral edema. EKG shows no ischemic changes. Cardiac enzymes are negative 2. She has no evidence of anemia on her blood work. Case was discussed with the patient's electronics engineer and double needle operator. They will recommend further follow-up in the outpatient setting. They do not recommend any further workup or interventions in the inpatient setting. Patient's medication list was reviewed. She is on dexamethasone prescribed by her double needle operator according to the patient. She was also noted to be on aspirin and meloxicam. We have advised that she stops taking meloxicam and use Tylenol if needed for pain control. Patient reported that she did not have portable oxygen to go home with. This was discussed with case management and they will be providing her with transportation home. She is medically stable to be discharged from the emergency room today.
[2017-08-13] MEDS ORDERED: GABAPENTIN100 M2 PO (09:35)
--- NOTE | 2017-08-13 12:48 | Cons- Cardiology ---
General Information and HPI Consulting Request Date of Consult: 08/13/17 Requested By: Wilder BARRIGA,Janna Reason for Consult: Chest pain Source of Information: patient, old records Exam Limitations: no limitations History of Present Illness: The patient is a 36-year-old woman with a past medical history of asthma, hyperlipidemia, depression, prior substance abuse as well as a questionable cardiac arrest during induction of anesthesia several years ago (subsequent cardiac catheterization demonstrated no significant coronary artery disease). She has well carries a diagnosis of COPD as well as gastroesophageal reflux disease. She presents to our hospital with symptoms of chest discomfort. The patient states symptoms of chest discomfort had onset while at physical rest. The symptoms were described as sharp, moderate to severe intensity and retrosternal with radiating to both arms. There was mild diaphoresis and lightheadedness as well as dyspnea. The patient states symptoms of discomfort exacerbated with physical activity; however, as well as exacerbate with by mouth intake and a sensation of food a motility is present during ingestion. Of note, previous testing including a cardiac catheterization approximately 4 years ago were negative for underlying etiologies. Outpatient echocardiography was as well within normal limits. On arrival, an initial EKG demonstrated no acute ischemic EKG changes. Troponin isoenzymes have been negative 2. Allergies/Medications Allergies: Coded Allergies: sertraline (From ZOLOFT) (Severe, THROAT CLOSES 03/23/17) Penicillins (Intermediate, HIVES 01/05/17) amoxicillin (Intermediate, HIVES 01/05/17) lactose (Intermediate, HIVES, LACTOSE INTOLERANT 01/05/17) latex (Intermediate, HIVES 01/05/17) valacyclovir (From VALTREX) (Intermediate, HIVES 01/05/17) Home Med List: Albuterol Sulfate (Proair Hfa) 90 MCG HFA.AER.AD 2 PUF INH PRN ASTHMA ( Reported) Albuterol Sulfate 2.5 MG/3 ML (0.083 %) VIAL.NEB 1 Vial INH/KYE Q8H PRN ASTHMA (Reported) Aspirin (Ecotrin*) 81 MG TABLET.DR 1 TAB PO DAILY HEART/BLOOD (Reported) Atorvastatin Calcium (Lipitor) 20 MG TABLET 1 TAB PO DAILY CHOLESTEROL ( Reported) Beclomethasone Dipropionate (Qnasl) 80 MCG/ACTUATION HFA.AER.AD 2 SPRAY NASB DAILY ALLERGIES (Reported) Ciprofloxacin HCl/Dexameth (Ciprodex Otic Suspension) 0.3 %-0.1 % DROPS.SUSP 4 GTT OT BID EAR NIFNECTION Cyanocobalamin (Vitamin B-12) 1,000 MCG TABLET 1 TAB PO DAILY SUPPLEMENT ( Reported) Dexamethasone 2 MG TABLET 1 TAB PO BID GI (Reported) Diphenoxylate HCl/Atropine (Lomotil 2.5-0.025 MG Tablet) 2.5 MG-0.025 MG TABLET 2 TAB PO BID GI (Reported) Docusate Sodium (Colace) 100 MG CAPSULE 1 CAP PO BID STOOL SOFTENER (Reported ) Gabapentin 100 MG CAPSULE 1 CAP PO TID pain (Reported) Hydrochlorothiazide 12.5 MG CAPSULE 1 CAP PO QPM DIURETIC (Reported) Hydrochlorothiazide 25 MG TABLET 1 TAB PO QAM DIURETIC (Reported) Hydrocortisone (Proctosol-Hc) 2.5 % CREAM.APPL 1 KAYLIN RC TID HEMORRHOIDS ( Reported) apply to affected area(s) Lamotrigine 100 MG TABLET 1 TAB PO DAILY MENTAL HEALTH (Reported) Lorazepam (Ativan) 0.5 MG TABLET 1 TAB PO DAILY ANXIETY (Reported) Meloxicam 7.5 MG TABLET 1 TAB PO DAILY PAIN (Reported) Metoclopramide HCl (Reglan) 5 MG TABLET 1 TAB PO TID N/V (Reported) Metoprolol Succ XL (Toprol XL) (Unknown Strength) TAB 100 MG PO DAILY HTN ( Reported) Montelukast Sodium 10 MG TABLET 1 TAB PO DAILY ALLERGIES (Reported) Olopatadine HCl (Pataday) 0.2 % DROPS 1 GTT OU QAM BOTH EYES (Reported) Pantoprazole Sodium 40 MG TABLET.DR 1 TAB PO DAILY GI (Reported) Paroxetine HCl 40 MG TABLET 1 TAB PO DAILY MENTAL HEALTH (Reported) Polyethylene Glycol 3350 17 GRAM POWD.PACK 1 PAC PO DAILY GI (Reported) Psyllium Husk (Konsyl) (Unknown Strength) POWD.PACK (Unknown Dose) PO DAILY GI (Reported) Tizanidine HCl 2 MG TABLET 1 TAB PO Q8H MUSCLE SPASMS (Reported) Topiramate (Topamax) 100 MG TABLET 1 TAB PO BID SEIZURES & DEPRESSION ( Reported) Current Medications: Current Medications Sig/Lokesh Start time Last Medication Dose Route Stop Time Status Admin Acetaminophen 0 .STK-MED ONE 08/13 454 DC PO Acetaminophen 650 MG ONCE ONE 08/13 444 DC 08/13 PO 08/13 0446 0452 Albuterol Sulfate 2 PUF Q4P PRN 08/13 0945 AC INH Aspirin 0 .STK-MED ONE 08/13 0431 DC PO Aspirin 325 MG ONCE ONE 08/13 0430 DC 08/13 PO 08/13 0431 0428 Aspirin Buffered 81 MG DAILY 08/13 1000 AC 08/13 PO 1123 Atorvastatin Calcium 40 MG 1700 08/13 1700 AC PO Ciprofloxacin 4 GTT DAILY PRN 08/13 0945 CAN OPH Dexamethasone 2 MG BID 08/13 1000 AC 08/13 PO 1123 Docusate Sodium 100 MG BID 08/13 1000 AC 08/13 PO 1123 Enoxaparin Sodium 40 MG DAILY 08/13 1000 AC 08/13 SC 1123 Gabapentin 100 MG TID 08/13 1000 AC 08/13 PO 1123 Hydrochlorothiazide 12.5 MG QPM 08/13 2200 AC PO Hydrochlorothiazide 25 MG QAM 08/13 1000 AC 08/13 PO 1123 Hydrocortisone 1 KAYLIN TID 08/13 1000 AC TOP Ketorolac 0 .STK-MED ONE 08/136 DC Tromethamine .ROUTE Ketorolac 30 MG ONCE ONE 08/13 444 DC 08/13 Tromethamine IV 08/13 0446 0452 Lamotrigine 100 MG DAILY 08/13 1000 AC 08/13 PO 1123 Lorazepam 0 .STK-MED ONE 08/13 1132 DC PO Lorazepam 0.5 MG DAILY 08/13 1000 AC 08/13 PO 08/20 0959 1130 Metoprolol Succinate 100 MG DAILY 08/13 1000 AC 08/13 PO 1123 Montelukast Sodium 10 MG DAILY 08/13 1000 AC 08/13 PO 1123 Nitroglycerin 0.4 MG ONCE ONE 08/13 0445 DC 08/13 SL 08/13 0446 0452 Nitroglycerin 0 .STK-MED ONE 08/13 0431 DC SL Nitroglycerin 0.4 MG ONCE ONE 08/13 0430 DC 08/13 SL 08/13 0431 0428 Paroxetine HCl 40 MG DAILY 08/13 1000 AC 08/13 PO 1123 Polyethylene Glycol 17 GM DAILY PRN 08/13 0945 AC PO Psyllium Hydrophilic 1 PAC BID PRN 08/13 0945 AC Mucilloid PO Tizanidine HCl 2 MG Q8 08/13 1400 AC 08/13 PO 1123 Topiramate 100 MG BID 08/13 1000 AC 08/13 PO 1123 Review of Systems Review of Systems: The review of systems is positive for chest pain, odynophagia, dyspnea, diaphoresis, lightheadedness. The remainder of the 14 point review of systems is noncontributory with the exception of above. Past History Travel History Traveled to [place] past 21 day No Medical History Neurological: SIMPLE SEIZURES PSEUDO SEIZURES EENT: NONE Cardiovascular: hyperlipidemia, myocardial infarction, NSTEMI, CARDIAC ARREST HYPOTENSION OR x2 cardiac arrest x2 palpitations heart murmur (REPORTED AFTER HYSTERECTOMY) Respiratory: asthma, COPD Gastrointestinal: GERD, irritable bowel syndrome, GASTRITIS rectal prolapse Hepatic: NONE Renal: UTI'S Musculoskeletal: NONE Psychiatric: depression, "MOOD DISORDER" anxiety Endocrine: HYPOGLYCEMIA(non-diabetic Blood Disorders: CHRONIC LEUKOCYTOSIS Cancer(s): ovarian cancer 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 Ambulation: independent IADLs Independent: shopping, housework, finances, food prep, telephone, transportation , medication admin. Exam & Diagnostic Data Vital Signs and I&O Vital Signs Date Time Temp Pulse Resp B/P B/P Pulse O2 O2 Flow FiO2 Mean Ox Delivery Rate 08/13 0640 68 18 110/71 100 08/13 0606 97.3 62 18 104/69 98 Room Air 08/13 0419 100 Nasal 3.0L Cannula 08/13 041 97.8 72 18 132/70 Nasal 3.0L Cannula Intake & Output 08/13 1600 08/13 0808/13 0000 08/12 1600 08/12 0000 Intake Total Output Total Balance Patient 300 lb Weight Weight Reported by Patient Measurement Method Physical Exam: General: Nontoxic, no apparent distress. HEENT: Sclera and conjunctiva within normal limits, without xanthelasmas. Neck: Carotids 2+ without bruits. Respiratory: Clear to auscultation, air movement is good, without accessory respiratory muscle use. Heart: Regular rate and rhythm, without murmurs, without JVD. Abdomen: Soft, nontender, no masses, normoactive bowel sounds. Extremities: Without clubbing, cyanosis, without edema. Neuro: Nonfocal exam, strength, 5 out of 5 Skin: Within normal limits without lesions. Psych: Mood and affect: Normal Assessment/Plan Assessment/Plan 36-year-old woman with a past medical history of asthma, hyperlipidemia, depression, prior substance abuse as well as a questionable cardiac arrest during induction of anesthesia several years ago (subsequent cardiac catheterization demonstrated no significant coronary artery disease). She has well carries a diagnosis of COPD as well as gastroesophageal reflux disease. She presents to our hospital with symptoms of chest discomfort. The patient has symptoms of chest pain which are unlikely of a cardiac etiology and most likely event marketing representative of a GI etiology. He has had previous testing as an outpatient which included stress testing as well as a remote cardiac catheterization which demonstrated no significant coronary artery disease. Although there is a possibility of coronary spasm as the etiology of her chest pain (Prinzmetal's angina), there is no evidence for this by blood work nor EKG. At this time, if further troponin isoenzymes are negative, may be discharged to home with further outpatient follow-up and follow-up by GI. Consult Acknowledgment - Thank you for your consult request.
[2017-08-13 14:14] VITALS: BP 102/54
--- NOTE | 2017-08-13 14:45 | Patient Discharge Instructions ---
Discharge Instructions General Discharge Information You were seen/treated for: chest pain Special Instructions: stephen follow up with Dr. Hernando [facility]-Dr. Schreiber please follow up with Dr. Garrison please follow up with your PCP regarding treatment with Dexamethasone Diet Continue normal diet: No Recommended Diet: Heart Healthy Activity Full Activity/No Limits: Yes Activity Self Limited: Yes Acute Coronary Syndrome Inclusion Criteria At DC or during hospital stay patient has or had the following: ACS DIAGNOSIS No Discharge Core Measures Meds if any: Prescribed or Continued at Discharge Meds if any: NOT Prescribed or Continued at Discharge Congestive Heart Failure Inclusion Criteria At DC or during hospital stay patient has or had the following: CHF DIAGNOSIS No Discharge Core Measures Meds if any: Prescribed or Continued at Discharge Meds if any: NOT Prescribed or Continued at Discharge Cerebrovascular accident Inclusion Criteria At DC or during hospital stay patient has or had the following: CVA/TIA Diagnosis No Discharge Core Measures Meds if any: Prescribed or Continued at Discharge Meds if any: NOT Prescribed or Continued at Discharge Venous thromboembolism Inclusion Criteria VTE Diagnosis No VTE Type NONE VTE Confirmed by (Test) NONE Discharge Core Measures - Per Current guidelines, there needs to be overlap - treatment for the first 5 days of Warfarin therapy. - If discharged on Warfarin prior to 5 days of - overlap therapy, the patient will need to be - assessed for post discharge needs including - *Post discharge parental anticoagulation - *Warfarin and/or parental anticoagulation education - *Follow up date to check INR post discharge At least 5 days overlap therapy as Inpatient No Meds if any: Prescribed or Continued at Discharge Note: Overlap Therapy is Warfarin and Anticoagulant Meds if any: NOT Prescribed or Continued at Discharge
== END 2017-08-13 17:30 ==
LOC: ERH 04:09 → ERHI 06:13 → ENRESERV 13:37 → ERHI 15:01
PROVIDERS: Pediatrics
DX: R07.89 Other chest pain (principal); J45.909 Unspecified asthma, uncomplicated; E78.5 Hyperlipidemia, unspecified; F32.9 Major depressive disorder, single episode, unspecified; J44.9 Chronic obstructive pulmonary disease, unspecified; K21.9 Gastro-esophageal reflux disease without esophagitis; Z79.82 Long term (current) use of aspirin; G40.89 Other seizures; Z99.81 Dependence on supplemental oxygen; I25.2 Old myocardial infarction; K58.1 Irritable bowel syndrome with constipation; Z87.440 Personal history of urinary (tract) infections; Z85.43 Personal history of malignant neoplasm of ovary; F41.9 Anxiety disorder, unspecified; E03.9 Hypothyroidism, unspecified; R60.0 Localized edema; F31.9 Bipolar disorder, unspecified; Z79.51 Long term (current) use of inhaled steroids
CPT/HCPCS: 93005; 93010; 96374; J1650; J1885; J3490; J7508

== ENCOUNTER 2017-09-05 18:39 | Emergency (ER) | payer OTHER ==
[~2017-09-05] VITALS: Ht 162.6 cm; Wt 104.3 kg
[~2017-09-05 18:39] MED LIST changes: +GABAPENTIN100 M2 PO
[2017-09-05 18:47] VITALS: BP 126/82
--- NOTE | 2017-09-05 19:06 | ED HAND/WRIST INJURY COMPLAINT ---
History of Present Illness General Chief Complaint: Hand or Wrist Injury Stated Complaint: WRISTS LOCKING UP Source: patient, old records Exam Limitations: no limitations Vital Signs & Intake/Output Vital Signs & Intake/Output Vital Signs Date Time Temp Pulse Resp B/P B/P Pulse O2 O2 Flow FiO2 Mean Ox Delivery Rate 09/05 1847 98.3 96 18 126/82 98 Room Air ED Intake and Output 09/06 0000 09/05 1200 Intake Total 0 Output Total Balance 0 Intake, Oral 0 Patient 230 lb Weight Weight Reported by Patient Measurement Method Allergies Coded Allergies: egg (Severe, LARYNGEAL EDEMA 08/13/17) sertraline (From ZOLOFT) (Severe, THROAT CLOSES 03/23/17) Penicillins (Intermediate, HIVES 01/05/17) amoxicillin (Intermediate, HIVES 01/05/17) lactose (Intermediate, HIVES, LACTOSE INTOLERANT 01/05/17) latex (Intermediate, HIVES 01/05/17) valacyclovir (From VALTREX) (Intermediate, HIVES 01/05/17) Uncoded Allergies: PEANUTS (Intermediate, HIVES 08/13/17) Reconcile Medications Albuterol Sulfate (Proair Hfa) 90 MCG HFA.AER.AD 2 PUF INH PRN ASTHMA ( Reported) Albuterol Sulfate 2.5 MG/3 ML (0.083 %) VIAL.NEB 1 Vial INH/KYE Q8H PRN ASTHMA (Reported) Aspirin (Ecotrin*) 81 MG TABLET.DR 1 TAB PO DAILY HEART/BLOOD (Reported) Atorvastatin Calcium (Lipitor) 20 MG TABLET 1 TAB PO DAILY CHOLESTEROL ( Reported) Beclomethasone Dipropionate (Qnasl) 80 MCG/ACTUATION HFA.AER.AD 2 SPRAY NASB DAILY ALLERGIES (Reported) Ciprofloxacin HCl/Dexameth (Ciprodex Otic Suspension) 0.3 %-0.1 % DROPS.SUSP 4 GTT OT BID EAR NIFNECTION Cyanocobalamin (Vitamin B-12) 1,000 MCG TABLET 1 TAB PO DAILY SUPPLEMENT ( Reported) Dexamethasone 2 MG TABLET 1 TAB PO BID GI (Reported) Diphenoxylate HCl/Atropine (Lomotil 2.5-0.025 MG Tablet) 2.5 MG-0.025 MG TABLET 2 TAB PO BID GI (Reported) Docusate Sodium (Colace) 100 MG CAPSULE 1 CAP PO BID STOOL SOFTENER (Reported ) Gabapentin 100 MG CAPSULE 1 CAP PO TID pain (Reported) Hydrochlorothiazide 12.5 MG CAPSULE 1 CAP PO QPM DIURETIC (Reported) Hydrochlorothiazide 25 MG TABLET 1 TAB PO QAM DIURETIC (Reported) Hydrocortisone (Proctosol-Hc) 2.5 % CREAM.APPL 1 KAYLIN RC TID HEMORRHOIDS ( Reported) apply to affected area(s) Lamotrigine 100 MG TABLET 1 TAB PO DAILY MENTAL HEALTH (Reported) Lorazepam (Ativan) 0.5 MG TABLET 1 TAB PO DAILY ANXIETY (Reported) Metoclopramide HCl (Reglan) 5 MG TABLET 1 TAB PO TID N/V (Reported) Metoprolol Succ XL (Toprol XL) (Unknown Strength) TAB 100 MG PO DAILY HTN ( Reported) Montelukast Sodium 10 MG TABLET 1 TAB PO DAILY ALLERGIES (Reported) Olopatadine HCl (Pataday) 0.2 % DROPS 1 GTT OU QAM BOTH EYES (Reported) Pantoprazole Sodium 40 MG TABLET.DR 1 TAB PO DAILY GI (Reported) Paroxetine HCl 40 MG TABLET 1 TAB PO DAILY MENTAL HEALTH (Reported) Polyethylene Glycol 3350 17 GRAM POWD.PACK 1 PAC PO DAILY GI (Reported) Psyllium Husk (Konsyl) (Unknown Strength) POWD.PACK (Unknown Dose) PO DAILY GI (Reported) Tizanidine HCl 2 MG TABLET 1 TAB PO Q8H MUSCLE SPASMS (Reported) Topiramate (Topamax) 100 MG TABLET 1 TAB PO BID SEIZURES & DEPRESSION ( Reported) Triage Note: 36 YO FEMALE TO TRIAGE STATING HER WRISTS HAVE BEEN LOCKING UP AND "THEN GOING LIMP" STATES HX OF PERIPHERAL NEUROPATHY. STATES SHE IS DUE TO HAVE HER TUBES TAKEN OUT OF HER EARS AND "THE DOCTOR WANTED ME TO COME TO MAKE SURE MY HANDS WOULDNT LOCK UP DURING SURGERY" PT DENIES INJURY TO HANDS. S/S STARTED 2 WEEKS AGO Triage Nurses Notes Reviewed? yes Occurred: last week Duration: intermittent, waxing and waning Timing: recent history Injury Environment: home Severity: mild Severity Numbers: 4 Pain/Injury Location: Bilateral: Wrist. Method of Injury: unknown No Modifying Factors: none Associated Symptoms: none : No Patient currently breastfeeds: No HPI: 36-year-old female history of neuropathy presents to the ER complaining of gradual onset of intermittent episodes in which she states over the past few weeks she's had in which her wrist and hand she state go limp, she states that she is able to raise them up on her own at which time she begins to have spasms in her hand and fingers causing them to contract. She's been taking Flexeril and her Lyrica without improvement. She denies any rashes to her skin, the last episode was last night. No recent fall trauma. No swelling to her hands or arms. She denies any symptoms at this time. No neck or back pain no chest pain no lower extremity injury (Jose Lewis) Past History Travel History Traveled to [place] past 21 day No Medical History Any Pertinent Medical History? 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 No (Jose Lewis) Review of Systems Review of Systems Constitutional: Reports: see HPI. All Other Systems: Reviewed and Negative Comments Review of systems: See HPI, All other systems negative. Constitutional, no chills no fever, HEENT: no sore throat Cardiovascular: No chest pain Skin: no rashes, no change in skin Respiratory: No dyspnea Muscle skeletal:SEE HPI, no back pain, no neck pain, Neurologic: , no headache Heme/endocrine: No bruising (Jose Lewis) Physical Exam Physical Exam General Appearance: well developed/nourished, alert, awake Hand Left: normal inspection, normal range of motion Hand Right: normal inspection, normal range of motion Comments: Well-developed well-nourished patient in no apparent distress. HEENT: Atraumatic, extraocular motion intact Neck: Supple, FROM Back: FROM Cardiovascular: Regular rate and rhythms no murmur Respiratory: No respiratory distress. Patient speaking in full complete sentences. Breath sounds clear to auscultation bilaterally: NO W/R/R Shoulder: Atraumatic/Stable. FROM . Elbow: Atraumatic/stable. FROM. No laxity Upper arm/Forearm: Atraumatic. Nontender. 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 Skin intact. FROM Pulses: Normal/equal radial pulses bilaterally. Brisk cap refill Lower Extremities: full range of motion Neuro: awake, alert, and oriented to person, place and time. There were no obvious focal neurologic abnormalities. Skin: Warm & dry;No appreciable rash on exposed skin Psych: Mood affect normal, normal memory normal judgment. (Jose Lewis) Progress Differential Diagnosis: contusion, compartment syndrome, dislocation, fracture, gout, septic arthritis, sprain, tenosynovitis Plan of Care: Orders Procedure Date/time Status Durable Medical Equipment 09/05 1913 Active No recent injury or trauma I do not believe the patient requires any imaging at this time which he is in agreement with. Bilateral cockup splints were applied advised close follow-up with her primary care physician on Friday, Tylenol Motrin for pain she is artery on Lyrica for her neuropathy she feels comfortable with plan (Jose Lewis) Departure Departure Time of Disposition: 1913 Disposition: HOME OR SELF CARE Condition: Stable Clinical Impression Primary Impression: Wrist pain Referrals: Jo-Ann Potter MD (PCP/Family) Additional Instructions: follow up with your pmd next week. braces as discussed. continue with your lyrica. interchange tylenol or motrin. return with any concerns Departure Forms: Customer Survey General Discharge Information (Jose Lewis) PA/GOLF BALL MOLDER Co-Sign Statement Statement: ED Attending supervision documentation- [] I saw and evaluated the patient. I have also reviewed all the pertinent lab results and diagnostic results. I agree with the findings and the plan of care as documented in the PA's/GOLF BALL MOLDER's documentation. [x] I have reviewed the ED Record and agree with the PA's/GOLF BALL MOLDER's documentation. [] Additions or exceptions (if any) to the PAs/GOLF BALL MOLDER's note and plan are summarized below: [] (Mitchel BARRIGA,Clyde Gutierrez)
== END 2017-09-05 19:37 ==
LOC: ERH 18:39
DX: M25.531 Pain in right wrist (principal); M25.532 Pain in left wrist

== ENCOUNTER 2017-09-29 16:04 | Inpatient (IN) | payer OTHER ==
[~2017-09-29] VITALS: Ht 162.6 cm; Wt 112.7 kg
--- NOTE | 2017-09-29 19:49 | ED GI/GU/ABDOMINAL COMPLAINT ---
History of Present Illness General Chief Complaint: General Adult Stated Complaint: ABD PAIN AND RECTAL BLEEDING Source: patient Exam Limitations: no limitations Vital Signs & Intake/Output Vital Signs & Intake/Output Vital Signs Date Time Temp Pulse Resp B/P B/P Pulse O2 O2 Flow FiO2 Mean Ox Delivery Rate 09/29 1943 97.9 69 18 131/83 99 Room Air 09/29 1723 98.0 74 18 125/83 95 Room Air Allergies Coded Allergies: egg (Severe, LARYNGEAL EDEMA 08/13/17) sertraline (From ZOLOFT) (Severe, THROAT CLOSES 03/23/17) Penicillins (Intermediate, HIVES 01/05/17) amoxicillin (Intermediate, HIVES 01/05/17) lactose (Intermediate, HIVES, LACTOSE INTOLERANT 01/05/17) latex (Intermediate, HIVES 01/05/17) valacyclovir (From VALTREX) (Intermediate, HIVES 01/05/17) Uncoded Allergies: PEANUTS (Intermediate, HIVES 08/13/17) Reconcile Medications Albuterol Sulfate (Proair Hfa) 90 MCG HFA.AER.AD 2 PUF INH PRN ASTHMA ( Reported) Albuterol Sulfate 2.5 MG/3 ML (0.083 %) VIAL.NEB 1 Vial INH/KYE Q8H PRN ASTHMA (Reported) Aspirin (Ecotrin*) 81 MG TABLET.DR 1 TAB PO DAILY HEART/BLOOD (Reported) Atorvastatin Calcium (Lipitor) 20 MG TABLET 1 TAB PO DAILY CHOLESTEROL ( Reported) Beclomethasone Dipropionate (Qnasl) 80 MCG/ACTUATION HFA.AER.AD 2 SPRAY NASB DAILY ALLERGIES (Reported) Ciprofloxacin HCl/Dexameth (Ciprodex Otic Suspension) 0.3 %-0.1 % DROPS.SUSP 4 GTT OT BID EAR NIFNECTION Cyanocobalamin (Vitamin B-12) 1,000 MCG TABLET 1 TAB PO DAILY SUPPLEMENT ( Reported) Dexamethasone 2 MG TABLET 1 TAB PO BID GI (Reported) Diphenoxylate HCl/Atropine (Lomotil 2.5-0.025 MG Tablet) 2.5 MG-0.025 MG TABLET 2 TAB PO BID GI (Reported) Docusate Sodium (Colace) 100 MG CAPSULE 1 CAP PO BID STOOL SOFTENER (Reported ) Gabapentin 100 MG CAPSULE 1 CAP PO TID pain (Reported) Hydrochlorothiazide 12.5 MG CAPSULE 1 CAP PO QPM DIURETIC (Reported) Hydrochlorothiazide 25 MG TABLET 1 TAB PO QAM DIURETIC (Reported) Hydrocortisone (Proctosol-Hc) 2.5 % CREAM.APPL 1 KAYLIN RC TID HEMORRHOIDS ( Reported) apply to affected area(s) Lamotrigine 100 MG TABLET 1 TAB PO DAILY MENTAL HEALTH (Reported) Lorazepam (Ativan) 0.5 MG TABLET 1 TAB PO DAILY ANXIETY (Reported) Metoclopramide HCl (Reglan) 5 MG TABLET 1 TAB PO TID N/V (Reported) Metoprolol Succ XL (Toprol XL) (Unknown Strength) TAB 100 MG PO DAILY HTN ( Reported) Montelukast Sodium 10 MG TABLET 1 TAB PO DAILY ALLERGIES (Reported) Olopatadine HCl (Pataday) 0.2 % DROPS 1 GTT OU QAM BOTH EYES (Reported) Pantoprazole Sodium 40 MG TABLET.DR 1 TAB PO DAILY GI (Reported) Paroxetine HCl 40 MG TABLET 1 TAB PO DAILY MENTAL HEALTH (Reported) Polyethylene Glycol 3350 17 GRAM POWD.PACK 1 PAC PO DAILY GI (Reported) Psyllium Husk (Konsyl) (Unknown Strength) POWD.PACK (Unknown Dose) PO DAILY GI (Reported) Tizanidine HCl 2 MG TABLET 1 TAB PO Q8H MUSCLE SPASMS (Reported) Topiramate (Topamax) 100 MG TABLET 1 TAB PO BID SEIZURES & DEPRESSION ( Reported) Triage Note: PT STATES SHE HAS BEEN BLEEDING FROM HER RECTUM EVERY TIME SHE GOES TO THE BATHROOM AND SHE IS HAVING RIGHT SIDED LOWER QUAD PAIN. PT REPORTS THIS ALL STARTED A FEW HOURS AGO. PT REPORTS BRIGHT RED BLOOD WITH HER DIARRHEA. PT ALSO HAVING NAUSEA. DR. DE LA GARZA WOULD LIKE TO BE CALLED Triage Nurses Notes Reviewed? yes Past History Travel History Traveled to [place] past 21 day No Medical History Neurological: SIMPLE SEIZURES PSEUDO SEIZURES EENT: NONE Cardiovascular: hyperlipidemia, myocardial infarction, NSTEMI, CARDIAC ARREST HYPOTENSION CT x2 cardiac arrest x2 palpitations heart murmur (REPORTED AFTER HYSTERECTOMY) Respiratory: asthma, COPD Gastrointestinal: GERD, irritable bowel syndrome, GASTRITIS rectal prolapse Hepatic: NONE Renal: UTI'S Musculoskeletal: NONE Psychiatric: depression, "MOOD DISORDER" anxiety Endocrine: hyperthyroidism, HYPOGLYCEMIA(non-diabetic Blood Disorders: CHRONIC LEUKOCYTOSIS Cancer(s): 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: bilateral 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 Other Medical Hx: allergy History of MRSA: No History of VRE: No History of CDIFF: No Surgical History Surgical History: appendectomy, cholecystectomy, , hysterectomy, oopherectommy hemorrhoid removal CARDIAC CATHETERIZATION 2014 - WNL Psychosocial History What is your primary language Somali Tobacco Use: Never used ETOH Use: denies use Illicit Drug Use: denies illicit drug use Family History Family History, If Any: FATHER Relation not specified for: Allergies Cervical cancer FH: diabetes mellitus FH: hypertension Heart attack Review of Systems Review of Systems Constitutional: Reports: no symptoms. EENTM: Reports: no symptoms. Respiratory: Reports: no symptoms. Cardiovascular: Reports: no symptoms. GI: Reports: no symptoms. Genitourinary: Reports: no symptoms. Musculoskeletal: Reports: no symptoms. Skin: Reports: no symptoms. Neurological/Psychological: Reports: no symptoms. Hematologic/Endocrine: Reports: no symptoms. Immunologic/Allergic: Reports: no symptoms. All Other Systems: Reviewed and Negative Progress Plan of Care: Orders Procedure Date/time Status PROTHROMBIN TIME 09/29 1650 Active HUMAN BETA HCG SCREEN 09/29 1650 Active COMPREHENSIVE METABOLIC PANEL 09/29 1650 Active CBC WITHOUT DIFFERENTIAL 09/29 1650 Complete TYPE & SCREEN (NOT X-MATCH) 09/29 1650 Active Laboratory Tests 09/29/17 1939: Sodium Pending, Potassium Pending, Chloride Pending, Carbon Dioxide Pending, Anion Gap Pending, BUN Pending, Creatinine Pending, BUN/Creatinine Ratio Pending , Glucose Pending, Calcium Pending, Total Bilirubin Pending, AST Pending, ALT Pending, Alkaline Phosphatase Pending, Total Protein Pending, Albumin Pending, Globulin Pending, Albumin/Globulin Ratio Pending, Total Beta HCG Pending, PT Pending, INR Pending, CBC w Diff NO MAN DIFF REQ, RBC 5.11, MCV 85.1, MCH 28.4, MCHC 33.3, RDW 13.3, MPV 7.9, Gran % 37.4 L, Lymphocytes % 52.8 H, Monocytes % 7.5, Eosinophils % 1.7, Basophils % 0.6, Absolute Granulocytes 1.8, Absolute Lymphocytes 2.6, Absolute Monocytes 0.4, Absolute Eosinophils 0.1, Absolute Basophils 0 Departure Departure Condition: Stable Referrals: Jo-Ann Potter MD (PCP/Family) Departure Forms: Customer Survey General Discharge Information
[2017-09-29 19:50] LABS: ABSOLUTE BASOPHIL COUNT 0 /CUMM (0.0-0.2); ABSOLUTE EOSINOPHIL COUNT 0.1 /CUMM (0.0-0.7); ABSOLUTE GRANULOCYTE CT 1.8 /CUMM (1.4-6.5); ABSOLUTE LYMPH COUNT 2.6 /CUMM (1.2-3.4); ABSOLUTE MONOCYTE COUNT 0.4 /CUMM (0.10-0.60); BASOPHIL % 0.6 % (0.0-2.0); EOSINOPHIL % 1.7 % (0-5); GRANULOCYTE % 37.4 % (42.2-75.2); HEMATOCRIT 43.5 % (37-47); MEAN CORPUSCULAR HGB 28.4 PG (27.0-31.0); MEAN CORPUSCULAR HGB CONC 33.3 G/DL (33.0-37.0); MEAN CORPUSCULAR VOLUME 85.1 FL (81.0-99.0); MEAN PLATELET VOLUME 7.9 FL (7.4-10.4); PLATELET COUNT 279 /CUMM (130-400); RBC DISTRIBUTION WIDTH 13.3 % (11.5-14.5); RED BLOOD CELL CT 5.11 /CUMM (4.20-5.40); WHITE BLOOD CELL COUNT 4.8 /CUMM (4.8-10.8)
[2017-09-29 20:04] LABS: PT 10.9 SEC (9.4-12.5)
--- NOTE | 2017-09-29 20:11 | ED GI/GU/ABDOMINAL COMPLAINT ---
History of Present Illness General Chief Complaint: General Adult Stated Complaint: ABD PAIN AND RECTAL BLEEDING Source: patient, old records Exam Limitations: no limitations Vital Signs & Intake/Output Vital Signs & Intake/Output Vital Signs Date Time Temp Pulse Resp B/P B/P Pulse O2 O2 Flow FiO2 Mean Ox Delivery Rate 09/29 2221 70 18 136/70 98 Room Air 09/29 1943 97.9 69 18 131/83 99 Room Air 09/29 1723 98.0 74 18 125/83 95 Room Air ED Intake and Output 09/30 0000 09/29 1200 Intake Total 500 Output Total Balance 500 Intake, IV 500 Intake, Oral 0 Patient 204 lb Weight Weight Reported by Patient Measurement Method Allergies Coded Allergies: egg (Severe, LARYNGEAL EDEMA 08/13/17) sertraline (From ZOLOFT) (Severe, THROAT CLOSES 03/23/17) Penicillins (Intermediate, HIVES 01/05/17) amoxicillin (Intermediate, HIVES 01/05/17) lactose (Intermediate, HIVES, LACTOSE INTOLERANT 01/05/17) latex (Intermediate, HIVES 01/05/17) valacyclovir (From VALTREX) (Intermediate, HIVES 01/05/17) Uncoded Allergies: PEANUTS (Intermediate, HIVES 08/13/17) Triage Note: PT STATES SHE HAS BEEN BLEEDING FROM HER RECTUM EVERY TIME SHE GOES TO THE BATHROOM AND SHE IS HAVING RIGHT SIDED LOWER QUAD PAIN. PT REPORTS THIS ALL STARTED A FEW HOURS AGO. PT REPORTS BRIGHT RED BLOOD WITH HER DIARRHEA. PT ALSO HAVING NAUSEA. DR. DE LA GARZA WOULD LIKE TO BE CALLED Triage Nurses Notes Reviewed? yes ? n Is pt currently ? No Onset: Gradual Duration: hour(s): Timing: multiple episodes today Quality/Severity: moderate Severity Numbers: 9 Location: right lower quadrant HPI: 36yo female with hx of IBS, GERD presents to ED complaining of blood in bowel movements beginning today. Patient states she has had diarrhea episodes and bright red blood in bowel movements or full-time today. Patient also reports right-sided lower abdominal cramping described as 9/10. Patient reports a history of previous gastrointestinal bleeding for which she has seen Dr. Jasso for in the past. Patient also reports nausea however no episodes of vomiting. Patient denies fevers, chills, syncope, dyspnea. (Samantha SAHU,Ankita Crump) Reconcile Medications Albuterol Sulfate (Proair Hfa) 90 MCG HFA.AER.AD 2 PUF INH PRN ASTHMA ( Reported) Albuterol Sulfate 2.5 MG/3 ML (0.083 %) VIAL.NEB 1 Vial INH/KYE Q8H PRN ASTHMA (Reported) Aspirin (Ecotrin*) 81 MG TABLET.DR 1 TAB PO DAILY HEART/BLOOD (Reported) Atorvastatin Calcium (Lipitor) 20 MG TABLET 1 TAB PO DAILY CHOLESTEROL ( Reported) Beclomethasone Dipropionate (Qnasl) 80 MCG/ACTUATION HFA.AER.AD 2 SPRAY NASB DAILY ALLERGIES (Reported) Cyanocobalamin (Vitamin B-12) 1,000 MCG TABLET 1 TAB PO DAILY SUPPLEMENT ( Reported) Diphenoxylate HCl/Atropine (Lomotil 2.5-0.025 MG Tablet) 2.5 MG-0.025 MG TABLET 2 TAB PO BID GI (Reported) Docusate Sodium (Colace) 100 MG CAPSULE 1 CAP PO BID STOOL SOFTENER (Reported ) Hydrochlorothiazide 12.5 MG CAPSULE 1 CAP PO QPM DIURETIC (Reported) Hydrochlorothiazide 25 MG TABLET 1 TAB PO QAM DIURETIC (Reported) Hydrocortisone (Proctosol-Hc) 2.5 % CREAM.APPL 1 KAYLIN RC TID HEMORRHOIDS ( Reported) apply to affected area(s) Lamotrigine 100 MG TABLET 1 TAB PO DAILY MENTAL HEALTH (Reported) Levothyroxine Sodium 25 MCG TABLET 1 TAB PO DAILY thryoud (Reported) Lorazepam (Ativan) 0.5 MG TABLET 1 TAB PO DAILY PRN anxiety (Reported) Metoclopramide HCl (Reglan) 5 MG TABLET 1 TAB PO DAILY PRN nausea (Reported) Metoprolol Succ XL (Toprol XL) 25 MG TAB 25 MG PO DAILY HTN (Reported) Montelukast Sodium 10 MG TABLET 1 TAB PO DAILY ALLERGIES (Reported) Olopatadine HCl (Pataday) 0.2 % DROPS 1 GTT OU QAM BOTH EYES (Reported) Pantoprazole Sodium 40 MG TABLET.DR 1 TAB PO DAILY GI (Reported) Paroxetine HCl 40 MG TABLET 1 TAB PO DAILY MENTAL HEALTH (Reported) Polyethylene Glycol 3350 17 GRAM POWD.PACK 1 PAC PO DAILY GI (Reported) Pregabalin (Lyrica) 25 MG CAPSULE 1 CAP PO TID pain (Reported) Tizanidine HCl 2 MG TABLET 1 TAB PO Q8H MUSCLE SPASMS (Reported) Topiramate (Topamax) 100 MG TABLET 0.5 TAB PO BID SEIZURES & DEPRESSION ( Reported) (Mitchel BARRIGA,Clyde Gutierrez) Past History Travel History Traveled to [place] past 21 day No Medical History Any Pertinent Medical History? 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 No (Ankita Mcpherson) Review of Systems Review of Systems Constitutional: Reports: no symptoms. EENTM: Reports: no symptoms. Respiratory: Reports: no symptoms. Cardiovascular: Reports: no symptoms. GI: Reports: see HPI. Genitourinary: Reports: no symptoms. Musculoskeletal: Reports: no symptoms. Skin: Reports: no symptoms. Neurological/Psychological: Reports: no symptoms. Hematologic/Endocrine: Reports: no symptoms. Immunologic/Allergic: Reports: no symptoms. All Other Systems: Reviewed and Negative (Ankita Mcpherson) Physical Exam Physical Exam General Appearance: well developed/nourished, no apparent distress, alert, awake Head: atraumatic, normal appearance Eyes: Bilateral: normal appearance. Ears, Nose, Throat, Mouth: hearing grossly normal, moist mucous membrane Neck: normal inspection, supple, full range of motion Respiratory: normal breath sounds, no respiratory distress, lungs clear Cardiovascular: regular rate/rhythm Gastrointestinal: normal bowel sounds, soft, no organomegaly, exam limited due to obesity, MILD RLQ tenderness without gaurding Rectal: heme positive stool, hemmorrhoids, brown stool Back: normal inspection, normal range of motion Extremities: normal range of motion Neurologic/Psych: awake, alert, oriented x 3 Skin: intact, normal color, warm/dry Core Measures ACS in differential dx? No Sepsis Present: No Sepsis Focused Exam Completed? No (Samantha SAHU,Ankita Crump) Progress Differential Diagnosis: bowel obstruction, colon cancer, diverticulitis, gastritis, hernia, inflamm bowel dis, SBO, colitis, GI bleed, bleeding diverticula, hemorrhoids Plan of Care: Orders Procedure Date/time Status Nothing by Mouth 09/30 B Active CBC WITHOUT DIFFERENTIAL 09/30 06 Active BASIC ELECTROLYTES PLUS BUN&CR 09/30 06 Active Pathway - chart 09/30 0111 Active House Staff 09/30 0111 Active VTE Mechanical Prophylaxis 09/30 UNK Active NUTRITIONAL CONSULT 09/29 2301 Active Weight 09/29 225 Active Vital Signs 09/29 2250 Active Teach/Educate 09/29 2250 Active Pain Treatment and Response 09/29 2250 Active Nutritional Intake, Monitor 09/29 2250 Active Isolation 09/29 2250 Active Intake & Output 09/29 2250 Active Patient Care Conference 09/29 2250 Active Activity/Ambulation 09/29 2250 Active Saline Lock 09/30 2151 Active Misc Message 09/30 2151 Active ED Holding Orders 09/30 2151 Active Admit to inpatient 09/30 2151 Active Vital Signs 09/30 2151 Active Code Status 09/30 2151 Active Patient Data 09/29 2149 Active Intake & Output 09/29 1944 Active PROTHROMBIN TIME 09/29 165 Complete HUMAN BETA HCG SCREEN 09/29 165 Complete COMPREHENSIVE METABOLIC PANEL 09/29 165 Complete CBC WITHOUT DIFFERENTIAL 09/29 165 Complete TYPE & SCREEN (NOT X-MATCH) 09/29 1650 Complete Current Medications Sig/Lokesh Start time Last Medication Dose Stop Time Status Admin Montelukast Sodium 10 MG AT BEDTIME 09/30 2100 AC (Singulair) Atorvastatin Calcium 20 MG 1700 09/30 1700 AC (Lipitor) Cyanocobalamin 1,000 MCG DAILY 09/30 0900 AC (Vitamin B12) Lamotrigine 100 MG DAILY 09/30 0900 AC (LaMICtal) Metoprolol Succinate 25 MG DAILY 09/30 899 AC (Toprol XL) Pantoprazole Sodium 40 MG DAILY 09/30 899 AC (Protonix) Pregabalin 25 MG TID 09/30 899 AC (Lyrica) Topiramate 50 MG BID 09/30 899 AC (Topamax) Acetaminophen 650 MG Q6P PRN 09/30 0115 AC (Tylenol) Lorazepam 0.5 MG DAILY PRN 09/30 0100 AC (Ativan) 10/07 0059 Laboratory Tests 09/29/171938: Anion Gap 11, Estimated GFR > 60, BUN/Creatinine Ratio 18.6, Glucose 117 H, Calcium 9.7, Total Bilirubin 0.9, AST 29, ALT 22, Alkaline Phosphatase 89, Total Protein 7.2, Albumin 4.4, Globulin 2.8, Albumin/Globulin Ratio 1.6, Total Beta HCG NEGATIVE, PT 10.9, INR 1.00, CBC w Diff NO MAN DIFF REQ, RBC 5.11, MCV 85.1, MCH 28.4, MCHC 33.3, RDW 13.3, MPV 7.9, Gran % 37.4 L, Lymphocytes % 52.8 H, Monocytes % 7.5, Eosinophils % 1.7, Basophils % 0.6, Absolute Granulocytes 1.8, Absolute Lymphocytes 2.6, Absolute Monocytes 0.4, Absolute Eosinophils 0.1, Absolute Basophils [address] scan of abdomen in July 2017 which showed no acute abnormality. Given this recent scan CT imaging held pending labs. Patient's labs are within normal limits, patient sitting comfortably in stretcher in no acute distress. Spoke with Dr. Jasso regarding this patient. If GI bleeding persists observation is reasonable however patient has no further episodes of GI bleeding and is comfortable going home his office can call the patient tomorrow and obtain repeat LABEL DRIER tomorrow. Upon reevaluation patient reports another bowel movement with significant dark red blood present. Patient is not comfortable going home. Spoke with case management who recommended full admit for this patient. Patient requires IV fluids, repeat labs, gastroenterology consult. Spoke with hospitalist Dr. Alarcon regarding this patient's admission. Initial ED EKG: none (Samantha SAHU,Ankita Crump) Departure Departure Disposition: STILL A PATIENT Condition: Stable Clinical Impression Primary Impression: GI bleeding Qualifiers: GI bleed type/associated pathology: unspecified gastrointestinal hemorrhage type Qualified Code: K92.2 - Gastrointestinal hemorrhage, unspecified Secondary Impressions: Abdominal pain Qualifiers: Abdominal location: right lower quadrant Qualified Code: R10.31 - Right lower quadrant pain Referrals: Jo-Ann Potter MD (PCP/Family) Departure Forms: Customer Survey General Discharge Information Admission Note Spoke With: Romero BARRIGA,Damien French Documentation of Exam: Documentation of any treatments & extenuating circumstances including Concerns Regarding Discharge (functional status, medication knowledge or non-compliance, living conditions, etc.) that warrant an admission rather than observation: [ Persistent GI bleeding while here in the emergency department requiring repeat labs, IV fluids, GI consult, possible GI procedure, premature discharge medically unsafe] (Samantha SAHU,Ankita Crump) PA/ASSOCIATE DIRECTOR OF DEVELOPMENT Co-Sign Statement Statement: ED Attending supervision documentation- [x] I saw and evaluated the patient. I have also reviewed all the pertinent lab results and diagnostic results. I agree with the findings and the plan of care as documented in the PA's/ASSOCIATE DIRECTOR OF DEVELOPMENT's documentation. [] I have reviewed the ED Record and agree with the PA's/ASSOCIATE DIRECTOR OF DEVELOPMENT's documentation. [] Additions or exceptions (if any) to the PAs/ASSOCIATE DIRECTOR OF DEVELOPMENT's note and plan are summarized below: [] (Mitchel BARRIGA,Clyde Gutierrez)
--- NOTE | 2017-09-29 21:51 | History & Physical ---
Carlos Flores 09/29/17 6240: General Information and HPI History of Present Illness: Ms. Desouza is a 36-year-old female with a PMH of irregular heartbeat ( reportedly), hypertension, hyperlipidemia, and prior cardiac arrest (2013), advanced COPD on 3L home oxygen (reportedly), COLBY on CPAP (reportedly), GERD, depression, hypothyroidism, chronic lower extremity edema, polysubstance abuse ( quit >10 years ago), former smoker (quit 11 years ago), former alcohol use (quit 9 months ago, one type of vodka per day), bipolar disorder and nonconvulsive seizure who presents to the ED with BRBPR and abdominal pain. Patient reports today after bowel movement she noticed bright red blood on toilet. She subsequently noticed bright red blood mixed with stools but blood did not fill the toilet. She also reports right lower quadrant abdominal pain burning and stabbing in nature accompanied by nausea and lightheadedness. 8 months ago she had a colonoscopy with biopsy at [place] which reported internal hemorrhoids and benign polyps. Her last admission for lower GI bleeding was 2 years ago at [place] for hemorrhoids. She has a poor appetite. She denies fever, chills, palpitations, CP, vomiting, hemoptysis, hematuria or vaginal bleeding Allergies/Medications Allergies: Coded Allergies: egg (Severe, LARYNGEAL EDEMA 08/13/17) sertraline (From ZOLOFT) (Severe, THROAT CLOSES 03/23/17) Penicillins (Intermediate, HIVES 01/05/17) amoxicillin (Intermediate, HIVES 01/05/17) lactose (Intermediate, HIVES, LACTOSE INTOLERANT 01/05/17) latex (Intermediate, HIVES 01/05/17) valacyclovir (From VALTREX) (Intermediate, HIVES 01/05/17) Uncoded Allergies: PEANUTS (Intermediate, HIVES 08/13/17) Home Med list Albuterol Sulfate (Proair Hfa) 90 MCG HFA.AER.AD 2 PUF INH PRN ASTHMA ( Reported) Albuterol Sulfate 2.5 MG/3 ML (0.083 %) VIAL.NEB 1 Vial INH/KYE Q8H PRN ASTHMA (Reported) Aspirin (Ecotrin*) 81 MG TABLET.DR 1 TAB PO DAILY HEART/BLOOD (Reported) Atorvastatin Calcium (Lipitor) 20 MG TABLET 1 TAB PO DAILY CHOLESTEROL ( Reported) Beclomethasone Dipropionate (Qnasl) 80 MCG/ACTUATION HFA.AER.AD 2 SPRAY NASB DAILY ALLERGIES (Reported) Cyanocobalamin (Vitamin B-12) 1,000 MCG TABLET 1 TAB PO DAILY SUPPLEMENT ( Reported) Diphenoxylate HCl/Atropine (Lomotil 2.5-0.025 MG Tablet) 2.5 MG-0.025 MG TABLET 2 TAB PO BID GI (Reported) Docusate Sodium (Colace) 100 MG CAPSULE 1 CAP PO BID STOOL SOFTENER (Reported ) Hydrochlorothiazide 12.5 MG CAPSULE 1 CAP PO QPM DIURETIC (Reported) Hydrochlorothiazide 25 MG TABLET 1 TAB PO QAM DIURETIC (Reported) Hydrocortisone (Proctosol-Hc) 2.5 % CREAM.APPL 1 KAYLIN RC TID HEMORRHOIDS ( Reported) apply to affected area(s) Lamotrigine 100 MG TABLET 1 TAB PO DAILY MENTAL HEALTH (Reported) Levothyroxine Sodium 25 MCG TABLET 1 TAB PO DAILY thryoud (Reported) Lorazepam (Ativan) 0.5 MG TABLET 1 TAB PO DAILY PRN anxiety (Reported) Metoclopramide HCl (Reglan) 5 MG TABLET 1 TAB PO DAILY PRN nausea (Reported) Metoprolol Succ XL (Toprol XL) 25 MG TAB 25 MG PO DAILY HTN (Reported) Montelukast Sodium 10 MG TABLET 1 TAB PO DAILY ALLERGIES (Reported) Olopatadine HCl (Pataday) 0.2 % DROPS 1 GTT OU QAM BOTH EYES (Reported) Pantoprazole Sodium 40 MG TABLET.DR 1 TAB PO DAILY GI (Reported) Paroxetine HCl 40 MG TABLET 1 TAB PO DAILY MENTAL HEALTH (Reported) Polyethylene Glycol 3350 17 GRAM POWD.PACK 1 PAC PO DAILY GI (Reported) Pregabalin (Lyrica) 25 MG CAPSULE 1 CAP PO TID pain (Reported) Tizanidine HCl 2 MG TABLET 1 TAB PO Q8H MUSCLE SPASMS (Reported) Topiramate (Topamax) 100 MG TABLET 0.5 TAB PO BID SEIZURES & DEPRESSION ( Reported) Past History Travel History Traveled to [place] past 21 day No Medical History Neurological: SIMPLE SEIZURES PSEUDO SEIZURES EENT: NONE Cardiovascular: hyperlipidemia, myocardial infarction, NSTEMI, CARDIAC ARREST HYPOTENSION NV x2 cardiac arrest x2 palpitations heart murmur (REPORTED AFTER HYSTERECTOMY) Respiratory: asthma, COPD Gastrointestinal: GERD, irritable bowel syndrome, GASTRITIS rectal prolapse Hepatic: NONE Renal: UTI'S Musculoskeletal: NONE Psychiatric: depression, "MOOD DISORDER" anxiety Endocrine: hyperthyroidism, HYPOGLYCEMIA(non-diabetic Blood Disorders: CHRONIC LEUKOCYTOSIS Cancer(s): ovarian cancer 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: bilateral 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 Other Medical Hx: allergy History of MRSA: No History of VRE: No History of CDIFF: No Surgical History Surgical History: appendectomy, cholecystectomy, , hysterectomy, oopherectommy hemorrhoid removal CARDIAC CATHETERIZATION 2014 - WNL Past Family/Social History Family History Relations & Conditions if any FATHER Relation not specified for: Allergies Cervical cancer FH: diabetes mellitus FH: hypertension Heart attack Psychosocial History ETOH Use: denies use Illicit Drug Use: denies illicit drug use Functional Ability ADLs Independent: dressing, eating, toileting, bathing. Ambulation: independent IADLs Independent: shopping, housework, finances, food prep, telephone, transportation , medication admin. Review of Systems Review of Systems Constitutional: Reports: see HPI. Exam & Diagnostic Data Last 24 Hrs of Vital Signs/I&O Vital Signs Date Time Temp Pulse Resp B/P B/P Pulse O2 O2 Flow FiO2 Mean Ox Delivery Rate 09/29 2221 70 18 136/70 98 Room Air 09/29 1943 97.9 69 18 131/83 99 Room Air 09/29 1723 98.0 74 18 125/83 95 Room Air Intake & Output 09/30 0800 09/30 0000 09/29 1600 Intake Total 500 Output Total Balance 500 Intake, IV 500 Intake, Oral 0 Patient 204 lb Weight Weight Reported by Patient Measurement Method Physical Exam General Appearance Alert, Oriented X3, Cooperative, No Acute Distress HEENT Atraumatic, PERRLA, EOMI, Mucous Membr. moist/pink Neck Supple, No JVD Cardiovascular Regular Rate, Normal S1, Normal S2, No Murmurs Lungs Clear to Auscultation, Normal Air Movement Abdomen upper quadrant abdominal tenderness on deep palpation Extremities No Edema, No Tenderness/Swelling Last 24 Hrs of Labs/Tomi: Laboratory Tests 09/29/171938: Anion Gap 11, Estimated GFR > 60, BUN/Creatinine Ratio 18.6, Glucose 117 H, Calcium 9.7, Total Bilirubin 0.9, AST 29, ALT 22, Alkaline Phosphatase 89, Total Protein 7.2, Albumin 4.4, Globulin 2.8, Albumin/Globulin Ratio 1.6, Total Beta HCG NEGATIVE, PT 10.9, INR 1.00, CBC w Diff NO MAN DIFF REQ, RBC 5.11, MCV 85.1, MCH 28.4, MCHC 33.3, RDW 13.3, MPV 7.9, Gran % 37.4 L, Lymphocytes % 52.8 H, Monocytes % 7.5, Eosinophils % 1.7, Basophils % 0.6, Absolute Granulocytes 1.8, Absolute Lymphocytes 2.6, Absolute Monocytes 0.4, Absolute Eosinophils 0.1, Absolute Basophils 0 Assessment/Plan Assessment: Ms. Desouza is a 36-year-old female with a PMH of irregular heartbeat ( reportedly), hypertension, hyperlipidemia, and prior cardiac arrest (2013), advanced COPD on 3L home oxygen (reportedly), COLBY on CPAP (reportedly), GERD, depression, hypothyroidism, chronic lower extremity edema, polysubstance abuse ( quit >10 years ago), former smoker (quit 11 years ago), former alcohol use (quit 9 months ago, one type of vodka per day), bipolar disorder and nonconvulsive seizure who presents to the ED with BRBPR and abdominal pain with recent colonoscopy that showed internal hemorrhoids and benign polyps. Problem list: Lower GI bleeding Abdominal pain Plan: Admit to general med for further evaluation and management Vitals every shift T&C Monitor H&H to maintain hemoglobin >7 Resume home medications IV Protonix GI consult Obtain records from [place] Diet: Heart healthy DVT ppx: ALPS Code: Full As Ranked By This Provider Problem List: 1. Abdominal pain Qualifiers Abdominal location: right lower quadrant Qualified Code: R10.31 - Right lower quadrant pain 2. GI bleeding Qualifiers GI bleed type/associated pathology: unspecified gastrointestinal hemorrhage type Qualified Code: K92.2 - Gastrointestinal hemorrhage, unspecified Core Measures/Misc (02/23) Acute Coronary Syndrome ACS Diagnosis: No Congestive Heart Failure Congestive Heart Failure Diagnosis No Cerebrovascular Accident CVA/TIA Diagnosis: No VTE (View Protocol) VTE Risk Factors Obesity No Mechanical VTE Prophylaxis d/t N/A MechProphylax Ordered No VTE Pharm Prophylaxis d/t Medical Contraindication Sepsis (View protocol) Sepsis Present: No Priya Alarcon 09/30/17 0416: Attending MD Review Statement Attending Statement Attending MD Statement: examined this patient, discuss w/resident/PA/INFORMATION TECHNOLOGY ARCHITECT, agreed w/resident/PA/INFORMATION TECHNOLOGY ARCHITECT, reviewed EMR data (avail), reviewed images, amended to note Attending Assessment/Plan: CC: Bleeding per rectum PMH: Depression/anxiety, pseudoseizures, polysubstance abuse, HTN, HLD, GERD, asthma/COPD, IBS, S/P bilateral oophorectomy, hysterectomy, appendectomy, cholecystectomy, hemorrhoid removal Patient came to ER for bright red blood per rectum she noticed every time she had bowel movement after 1 aM yesterday. She was noticing blood on the wipes initially but then she noticed blood mixed with stool, approximately 20-30 mL, no clots. She has weak right lower quadrant abdominal pain at that time, nonradiating, no relieving factors. She denies any chest pain, chest tightness or shortness of breath, fever, chills. She had similar episode approximately 8 months back, for which she was admitted at [facility] and underwent colonoscopy and a polyp was removed at that time. She states that she is expected to get colonoscopy every year. Vitals: Afebrile, pulse 74, RR 18, blood pressure 125/83, saturating 95% on room air. On exam: A O 3, cooperative, no acute distress, obese, neck supple, JVD normal, no lymphadenopathy, mucosa moist, no focal neurological deficit, no dependent edema, no obvious skin rashes or inflammation CVS: S1-S2, RRR. RS: Clear to auscultate bilaterally. Abdomen: Soft, NT, ND, bowel sounds present. Rectal examination positive for heme positive stool then by ER. Assessment and plan 36-year-old female with extensive past medical history as mentioned above presented in ER for bright blood per rectum since 1 AM, with every stool, initially on the wipes then mixed in the stool, associated with the right lower quadrant abdominal pain. Patient was investigated for similar symptoms approximately 8 months back at [facility], she had a small polyp which was removed. Her H&H is 14.5/43.5, hemodynamically stable. She had a bowel movement in ER which had dark red blood according to documentation. Patient may be having hemorrhoidal bleeding. As she has underwent extensive evaluation recently, at this point we will get GI opinion for further plan. Patient insists on colonoscopy, and she is scared about cancer as her father had cancer. 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 + Bright red blood per rectum + Depression/anxiety, pseudoseizures, polysubstance abuse, HTN, HLD, GERD, asthma/COPD, IBS, S/P bilateral oophorectomy, hysterectomy, appendectomy, cholecystectomy, hemorrhoid removal - Admit to general medicine - Nothing by mouth - Continue gentle hydration - Repeat hemoglobin in a.m. - GI consult - Protonix 40 mg IV daily - Continue her home medications - Obtain records from [facility] Ofelia Fungkevon 09/30/17 0441: Resident Review Statement Resident Statement: examined this patient, discussed with business analytics intern, agreed with business analytics intern, reviewed images, amended to note Other Findings: 36-year-old lady with extensive past medical history of reportedly irregular heartbeat, COPD on 3 L oxygen reportedly, skeletal reported reportedly reported COLBY on CPAP reportedly, depression, hypothyroidism, remote polysubstance abuse, GERD, former smoker, total hysterosalpingo-oophorectomy, two-time cardiac arrest , hypertension, bipolar disorder, pseudoseizures, gallbladder removal, appendectomy, tonsillectomy,bipolar, hemorrhoids Came to the hospital with chief complaint of hematochezia and rectal bleeding. Patient reported 1 AM yesterday she had episode of blood on the toilet paper after wiping. Subsequently Stools mixed with blood also right lower quadrant tenderness. patient has occasional heartburn and nausea with abdominal spasms as well at baseline. She reported that she had a surgery couple of years ago at [facility] for hemorrhoids and also she had an episode of rectal bleeding 8 months ago which at that point she was admitted to [facility] and subsequent colonoscopy showed small benign polyps and internal hemorrhoids which was removed. Patient denies any fevers, chills, palpitations, chest pain, shortness of breath, vomiting, bleeding anywhere else. She had another episode of body bowel movement in the ED as well. Vital signs in ED were stable,No fevers good O2 saturation on room air Patient is alert and oriented 3 Chest is clear bilaterally Heart S1-S2 normal, no murmurs Abdomen patient has upper abdomen tenderness in the palpation For details of the physical exam above Coagulation studies were within normal limits, CBC was notable for lymphocytic percentage more than 50%(chronic) sodium 135, chloride 94 Assessment History of bipolar and anxiety History of chronic nausea and muscle spasm History of hypertension History of COPD Rectal bleeding History of GERD Plan Admit to general medicine floor IV Protonix daily Check CBC in the morning GI consultation in the morning Obtain records from [facility] nebs hold aspirin, lomotil,Colace, MiraLAX, HCTZ, Preparation H, tizanidine Continue metoprolol, levothyroxine, Ativan when necessary, lamotrigine, Lyrica, Topamax Please confirm her medication dosage and frequency from the pharmacy in the morning DVT prophylaxis for now is mechanical, full code, NPO, Tylenol for pain
[2017-09-30] MEDS ORDERED: LEVOTHYROXINE25 MCG PO (01:02)
[2017-09-30] MEDS ORDERED: LYRICA75 M1 PO (01:02)
[2017-09-30] MEDS ORDERED: LYRICA25 M1 PO (01:06)
--- NOTE | 2017-09-30 04:17 | Admission Certification ---
Admission Certification Certification Statement - As attending physician, I certify that at the time of - admission, based on clinical presentation, severity of - symptoms, need for further diagnostic testing and - therapeutic interventions, and risk of adverse outcomes - without in-hospital treatment, in my clinical assessment, - this patient requires an acute hospital stay for a minimum - of two nights or longer. I have also considered psychsocial - factors such as support system, advanced age, financial - issues, cognitive issues, and failed out-patient treatments, - past re-admission history, safety of patient, and lack of - compliance as applicable. Specific rationale supporting this admission is: Bright red blood per rectum
[2017-09-30 06:53] VITALS: BP 110/68
--- NOTE | 2017-09-30 07:46 | PN- Housestaff ---
Margie Vizcaino MD,[facility] 09/30/17 0746: Subjective Follow-up For: Abdominal pain Pain and bleeding per rectum Subjective: Patient visited today, was lying in bed comfortably in no acute distress, was alert and oriented. Was admitted overnight, patient had abdominal pain, however significantly improved compared to last night. At conversation with Dr. Garrison, noted there is no serious pathology and patient could follow up in outpatient. Patient was administered rectal suppository. Patient was stable to be discharged Review of Systems Constitutional: Reports: see HPI. Objective Last 24 Hrs of Vital Signs/I&O Vital Signs Date Time Temp Pulse Resp B/P B/P Pulse O2 O2 Flow FiO2 Mean Ox Delivery Rate 09/30 1049 Room Air Room Air 09/30 0955 110/68 09/30 0653 97.8 65 18 110/68 94 Room Air 09/29 2221 70 18 136/70 98 Room Air 09/29 1943 97.9 69 18 131/83 99 Room Air 09/29 1723 98.0 74 18 125/83 95 Room Air Intake & Output 09/30 1600 09/30 0800 09/30 0000 Intake Total 500 Output Total 600 Balance -600 500 Intake, IV 500 Intake, Oral 0 Number 1 Bowel Movements Output, Urine 600 Patient 249 lb 250 lb 204 lb Weight Weight Reported by Patient Measurement Method Physical Exam General Appearance: Alert, Oriented X3, Cooperative, No Acute Distress Skin Temp/Moisture Exam: Warm/Dry HEENT: Atraumatic, Mucous Membr. moist/pink Cardiovascular: Normal S1, Normal S2 Lungs: Normal Air Movement Abdomen: Soft, No Tenderness Neurological: Normal Speech Extremities: non pitting, Current Medications: Current Medications Sig/Lokesh Start time Last Medication Dose Route Stop Time Status Admin Acetaminophen 650 MG Q6P PRN 09/30 0115 DCD 09/30 PO 0558 Atorvastatin Calcium 20 MG 1700 09/30 1700 DCD PO Cyanocobalamin 1,000 MCG DAILY 09/30 0900 DCD 09/30 PO 0956 Lamotrigine 100 MG DAILY 09/30 0900 DCD 09/30 PO 0955 Levothyroxine Sodium 0.025 MG DAILY AC 09/30 0700 DCD 09/30 PO 0558 Lorazepam 0.5 MG DAILY PRN 09/30 0100 DCD 09/30 PO 10/07 0059 1216 Metoclopramide HCl 5 MG DAILY PRN 09/30 0430 DCD 09/30 PO 0558 Metoprolol Succinate 25 MG DAILY 09/30 09 DCD 09/30 PO 0955 Montelukast Sodium 10 MG AT BEDTIME 09/30 2100 DCD PO Morphine Sulfate 2 MG ONCE ONE 09/30 1200 CAN IV 09/30 1201 Morphine Sulfate 0.5 MG ONCE ONE 09/30 1200 DC IV 09/30 1201 Pantoprazole Sodium 40 MG DAILY 09/30 0900 DCD 09/30 IV 0936 Paroxetine HCl 20 MG DAILY 09/30 09 DCD 09/30 PO 0955 Pregabalin 25 MG TID 09/30 0900 DCD 09/30 PO 0956 Sodium Chloride 1,000 ML BOLUS ONE 09/29 2145 DC 09/29 IV 09/29 2249 Topiramate 50 MG BID 09/30 899 DCD 09/30 PO 0955 Trimethobenzamide HCl 200 MG ONCE ONE 09/30 0915 DC 09/30 IM 09/30 0916 0931 Last 24 Hrs of Lab/Tomi Results Last 24 Hrs of Labs/Mics: Laboratory Tests 09/30/17815: Anion Gap 12, Estimated GFR > 60, BUN/Creatinine Ratio 18.3, CBC w Diff NO MAN DIFF REQ, RBC 4.67, MCV 84.6, MCH 28.6, MCHC 33.8, RDW 13.5, MPV 8.3, Gran % 24.2 L, Lymphocytes % 64.7 H, Monocytes % 8.6, Eosinophils % 2.1, Basophils % 0.4, Absolute Granulocytes 0.9 L, Absolute Lymphocytes 2.5, Absolute Monocytes 0.3, Absolute Eosinophils 0.1, Absolute Basophils 0 09/29/171938: Anion Gap 11, Estimated GFR > 60, BUN/Creatinine Ratio 18.6, Glucose 117 H, Calcium 9.7, Total Bilirubin 0.9, AST 29, ALT 22, Alkaline Phosphatase 89, Total Protein 7.2, Albumin 4.4, Globulin 2.8, Albumin/Globulin Ratio 1.6, Total Beta HCG NEGATIVE, PT 10.9, INR 1.00, CBC w Diff NO MAN DIFF REQ, RBC 5.11, MCV 85.1, MCH 28.4, MCHC 33.3, RDW 13.3, MPV 7.9, Gran % 37.4 L, Lymphocytes % 52.8 H, Monocytes % 7.5, Eosinophils % 1.7, Basophils % 0.6, Absolute Granulocytes 1.8, Absolute Lymphocytes 2.6, Absolute Monocytes 0.4, Absolute Eosinophils 0.1, Absolute Basophils 0 Assessment/Plan Assessment: Ms. Desouza is a 36-year-old female with a PMH of irregular heartbeat ( reportedly), hypertension, hyperlipidemia, and prior cardiac arrest (2013), advanced COPD on 3L home oxygen (reportedly), COLBY on CPAP (reportedly), GERD, depression, hypothyroidism, chronic lower extremity edema, polysubstance abuse ( quit >10 years ago), former smoker (quit 11 years ago), former alcohol use (quit 9 months ago, one type of vodka per day), bipolar disorder and nonconvulsive seizure who presents to the ED with BRBPR and abdominal pain with recent colonoscopy that showed internal hemorrhoids and benign polyps. Patient was admitted to general medicine floor for evaluation and treatment of bright red bleeding per rectum and abdominal pain. Overnight the patient demonstrated significant improvement in clinical condition , abdominal pain improved. Patient had bowel movement in the morning which was guaiac negative. Dr. Garrison was consulted, he informed considering the recent colonoscopy and history of hemorrhoids patient can be discharged on stool softeners. Patient was discharged with recommendation to follow with Dr. Garrison in the office as an outpatient setting. Problem List: 1. GI bleeding 2. Bleeding hemorrhoid 3. Obesity Pain Ratin Pain Location: rectal Pain Goal: Pain 4 or less Pain Plan: controlled later during the day Tomorrow's Labs & Rationales: None Sola Barrios MD 09/30/17 1242: Attending MD Review Statement Attending Statement Attending MD Statement: examined this patient, discuss w/resident/PA/BACKSIDE GRINDER, agreed w/resident/PA/BACKSIDE GRINDER, reviewed EMR data (avail), discussed with nursing, discussed with case mgmt, amended to note Attending Assessment/Plan: Patient seen and examined during rounds this morning. She was lying comfortably in bed and smiling. No issues overnight reported by nursing staff. Patient presented with emergency room complaining of bright red blood per rectum. Stool guaiac has been done on 2 separate occasions by nursing staff and results were reported as negative. Her hemoglobin level is essentially stable. Her vital signs are stable with a stable blood pressure and no tachycardia. She complains of abdominal discomfort. This complaint is chronic for the patient one has been ongoing on and off. She has had extensive cardiac and GI workup in the past with no clear etiology to her pain. She currently does appear comfortable and does not appear to be in need of any analgesic medication at present. I did discuss the case with her lease purchase truck driver Dr. Garrison today. his recommendations were for the patient to be discharged home to follow-up as an outpatient. During rounds this morning, patient was in agreement with this plan.
[2017-09-30 09:21] LABS: ABSOLUTE BASOPHIL COUNT 0 /CUMM (0.0-0.2); ABSOLUTE EOSINOPHIL COUNT 0.1 /CUMM (0.0-0.7); ABSOLUTE GRANULOCYTE CT 0.9 /CUMM (1.4-6.5); ABSOLUTE LYMPH COUNT 2.5 /CUMM (1.2-3.4); ABSOLUTE MONOCYTE COUNT 0.3 /CUMM (0.10-0.60); BASOPHIL % 0.4 % (0.0-2.0); EOSINOPHIL % 2.1 % (0-5); GRANULOCYTE % 24.2 % (42.2-75.2); HEMATOCRIT 39.5 % (37-47); MEAN CORPUSCULAR HGB 28.6 PG (27.0-31.0); MEAN CORPUSCULAR HGB CONC 33.8 G/DL (33.0-37.0); MEAN CORPUSCULAR VOLUME 84.6 FL (81.0-99.0); MEAN PLATELET VOLUME 8.3 FL (7.4-10.4); PLATELET COUNT 248 /CUMM (130-400); RBC DISTRIBUTION WIDTH 13.5 % (11.5-14.5); RED BLOOD CELL CT 4.67 /CUMM (4.20-5.40); WHITE BLOOD CELL COUNT 3.9 /CUMM (4.8-10.8)
[2017-09-30 09:55] VITALS: BP 110/68
--- NOTE | 2017-09-30 12:02 | Patient Discharge Instructions ---
Discharge Instructions General Discharge Information You were seen/treated for: Hemorrhoids Watch for these problems: Bleeding or pain in her rectal area Special Instructions: Please follow with her PCP within one week of discharge. Please follow with your military pilot, Dr. Garrison if needed. Diet Continue normal diet: No Recommended Diet: Heart Healthy (include fiber) Activity Full Activity/No Limits: No Activity Self Limited: Yes Acute Coronary Syndrome Inclusion Criteria At DC or during hospital stay patient has or had the following: ACS DIAGNOSIS No Discharge Core Measures Meds if any: Prescribed or Continued at Discharge Meds if any: NOT Prescribed or Continued at Discharge Congestive Heart Failure Inclusion Criteria At DC or during hospital stay patient has or had the following: CHF DIAGNOSIS No Discharge Core Measures Meds if any: Prescribed or Continued at Discharge Meds if any: NOT Prescribed or Continued at Discharge Cerebrovascular accident Inclusion Criteria At DC or during hospital stay patient has or had the following: CVA/TIA Diagnosis No Discharge Core Measures Meds if any: Prescribed or Continued at Discharge Meds if any: NOT Prescribed or Continued at Discharge Venous thromboembolism Inclusion Criteria VTE Diagnosis No VTE Type NONE VTE Confirmed by (Test) NONE Discharge Core Measures - Per Current guidelines, there needs to be overlap - treatment for the first 5 days of Warfarin therapy. - If discharged on Warfarin prior to 5 days of - overlap therapy, the patient will need to be - assessed for post discharge needs including - *Post discharge parental anticoagulation - *Warfarin and/or parental anticoagulation education - *Follow up date to check INR post discharge At least 5 days overlap therapy as Inpatient No Meds if any: Prescribed or Continued at Discharge Note: Overlap Therapy is Warfarin and Anticoagulant Meds if any: NOT Prescribed or Continued at Discharge
[2017-09-30] MEDS ORDERED: ANUSOL-HC25 M1 RC (13:49)
--- NOTE | 2017-09-30 13:53 | Cons- Gastroenterology ---
General Information and HPI Consulting Request Date of Consult: 09/30/17 Requested By: Sola Barrios MD Reason for Consult: Abdominal pain, diarrhea, and rectal bleeding. Source of Information: patient, old records Exam Limitations: no limitations History of Present Illness: Ms. Desouza is a 36 year old female with IBS who presented to yesterday with complaints of worsening abdominal pain, persistent diarrhea and rectal bleeding. She came to see me as an outpatiet a few months ago with diarrhea at which point a calprotectin was checked which was normal and she also had a negative celiac panel. As she had a colonoscopy in 2014 and her fecal calprotectin was normal a repeat colonoscopy was deferred and she was given a 2 week course of xifaxan for empiric treatment of IBS, but she notes in spite of taking it she has continued to have watery diarrhea. She reports having upwards of 8 bowel movements a day and this had been non-bloody until yesterday when she began noticing scants amount of blood with her bowel movements. She has been taking lomotil without much befefit (viberzi is contraindicated in pts who have had their GB removed). In the ER she was hemodynamically stable and afebrile and was essentially admitted for pain control after not being able to achieve this in the ER. She had unremarkable blood work and repeat imaging was deferred as she had a negative ct scan in July with similar pain. She continues to complain of some discomfort and rectal bleeding, but her hgb has been stable and the pain is somewhat improved. Allergies/Medications Allergies: Coded Allergies: egg (Severe, LARYNGEAL EDEMA 08/13/17) sertraline (From ZOLOFT) (Severe, THROAT CLOSES 03/23/17) Penicillins (Intermediate, HIVES 01/05/17) amoxicillin (Intermediate, HIVES 01/05/17) lactose (Intermediate, HIVES, LACTOSE INTOLERANT 01/05/17) latex (Intermediate, HIVES 01/05/17) peanut (Intermediate, HIVES 09/30/17) valacyclovir (From VALTREX) (Intermediate, HIVES 01/05/17) Home Med List: Albuterol Sulfate (Proair Hfa) 90 MCG HFA.AER.AD 2 PUF INH PRN ASTHMA ( Reported) Albuterol Sulfate 2.5 MG/3 ML (0.083 %) VIAL.NEB 1 Vial INH/KYE Q8H PRN ASTHMA (Reported) Anusol Hc (Anusol-Hc) 25 MG SUPP.RECT 1 SUP RC BID CONSTIPATION Aspirin (Ecotrin*) 81 MG TABLET.DR 1 TAB PO DAILY HEART/BLOOD (Reported) Atorvastatin Calcium (Lipitor) 20 MG TABLET 1 TAB PO DAILY CHOLESTEROL ( Reported) Beclomethasone Dipropionate (Qnasl) 80 MCG/ACTUATION HFA.AER.AD 2 SPRAY NASB DAILY ALLERGIES (Reported) Cyanocobalamin (Vitamin B-12) 1,000 MCG TABLET 1 TAB PO DAILY SUPPLEMENT ( Reported) Diphenoxylate HCl/Atropine (Lomotil 2.5-0.025 MG Tablet) 2.5 MG-0.025 MG TABLET 2 TAB PO BID GI (Reported) Docusate Sodium (Colace) 100 MG CAPSULE 1 CAP PO BID STOOL SOFTENER (Reported ) Hydrochlorothiazide 12.5 MG CAPSULE 1 CAP PO QPM DIURETIC (Reported) Hydrochlorothiazide 25 MG TABLET 1 TAB PO QAM DIURETIC (Reported) Hydrocortisone (Proctosol-Hc) 2.5 % CREAM.APPL 1 KAYLIN RC TID HEMORRHOIDS ( Reported) apply to affected area(s) Lamotrigine 100 MG TABLET 1 TAB PO DAILY MENTAL HEALTH (Reported) Levothyroxine Sodium 25 MCG TABLET 1 TAB PO DAILY thryoud (Reported) Lorazepam (Ativan) 0.5 MG TABLET 1 TAB PO DAILY PRN anxiety (Reported) Metoclopramide HCl (Reglan) 5 MG TABLET 1 TAB PO DAILY PRN nausea (Reported) Metoprolol Succ XL (Toprol XL) 25 MG TAB 25 MG PO DAILY HTN (Reported) Montelukast Sodium 10 MG TABLET 1 TAB PO DAILY ALLERGIES (Reported) Olopatadine HCl (Pataday) 0.2 % DROPS 1 GTT OU QAM BOTH EYES (Reported) Pantoprazole Sodium 40 MG TABLET.DR 1 TAB PO DAILY GI (Reported) Paroxetine HCl 40 MG TABLET 1 TAB PO DAILY MENTAL HEALTH (Reported) Polyethylene Glycol 3350 17 GRAM POWD.PACK 1 PAC PO DAILY GI (Reported) Pregabalin (Lyrica) 25 MG CAPSULE 1 CAP PO TID pain (Reported) Tizanidine HCl 2 MG TABLET 1 TAB PO Q8H MUSCLE SPASMS (Reported) Topiramate (Topamax) 100 MG TABLET 0.5 TAB PO BID SEIZURES & DEPRESSION ( Reported) Current Medications: Current Medications Sig/Lokesh Start time Last Medication Dose Route Stop Time Status Admin Acetaminophen 650 MG Q6P PRN 09/30 0115 AC 09/30 PO 0558 Atorvastatin Calcium 20 MG 1700 09/30 1700 AC PO Cyanocobalamin 1,000 MCG DAILY 09/30 0900 AC 09/30 PO 0956 Lamotrigine 100 MG DAILY 09/30 0900 AC 09/30 PO 0955 Levothyroxine Sodium 0.025 MG DAILY AC 09/30 0700 AC 09/30 PO 0558 Lorazepam 0.5 MG DAILY PRN 09/30 0100 AC 09/30 PO 10/07 0059 1216 Metoclopramide HCl 5 MG DAILY PRN 09/30 0430 AC 09/30 PO 0558 Metoprolol Succinate 25 MG DAILY 09/30 0900 AC 09/30 PO 0955 Montelukast Sodium 10 MG AT BEDTIME 09/30 2100 AC PO Morphine Sulfate 2 MG ONCE ONE 09/30 1200 CAN IV 09/30 1201 Morphine Sulfate 0.5 MG ONCE ONE 09/30 1200 DC IV 09/30 1201 Pantoprazole Sodium 40 MG DAILY 09/30 0900 AC 09/30 IV 0936 Paroxetine HCl 20 MG DAILY 09/30 0900 AC 09/30 PO 0955 Pregabalin 25 MG TID 09/30 0900 AC 09/30 PO 0956 Sodium Chloride 1,000 ML BOLUS ONE 09/29 2145 DC 09/29 IV 09/29 2244 2229 Topiramate 50 MG BID 09/30 0900 AC 09/30 PO 0955 Trimethobenzamide HCl 200 MG ONCE ONE 09/30 0915 DC 09/30 IM 09/30 0916 0931 Past History Travel History Traveled to [place] past 21 day No Medical History Neurological: SIMPLE SEIZURES PSEUDO SEIZURES EENT: NONE Cardiovascular: hyperlipidemia, myocardial infarction, NSTEMI, CARDIAC ARREST HYPOTENSION [place] x2 cardiac arrest x2 palpitations heart murmur (REPORTED AFTER HYSTERECTOMY) Respiratory: asthma, COPD Gastrointestinal: GERD, irritable bowel syndrome, GASTRITIS rectal prolapse Hepatic: NONE Renal: UTI'S Musculoskeletal: NONE Psychiatric: depression, "MOOD DISORDER" anxiety Endocrine: hyperthyroidism, HYPOGLYCEMIA(non-diabetic Blood Disorders: CHRONIC LEUKOCYTOSIS Cancer(s): ovarian cancer [employer]ING [employer]ING [employer]ER/Reproductive: bilateral 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 Other Medical Hx: allergy Surgical History Surgical History: appendectomy, cholecystectomy, , hysterectomy, oopherectommy hemorrhoid removal CARDIAC CATHETERIZATION 2014 - WNL Family History Relations & Conditions If Any: FATHER Relation not specified for: Allergies Cervical cancer FH: diabetes mellitus FH: hypertension Heart attack Psychosocial History Where Do You Live? Home Smoking Status: Former Smoker ETOH Use: denies use Illicit Drug Use: denies illicit drug use Functional Ability ADLs Independent: dressing, eating, toileting, bathing. Ambulation: independent IADLs Independent: shopping, housework, finances, food prep, telephone, transportation , medication admin. Review of Systems Review of Systems Constitutional: Denies: fever, malaise, weakness, unexplained weight loss. EENTM: Denies: no symptoms. Cardiovascular: Reports: orthopena, palpitations. Denies: chest pain, edema, syncope. Respiratory: Denies: no symptoms. GI: Reports: see HPI. Genitourinary: Denies: no symptoms. Musculoskeletal: Reports: joint swelling, muscle pain. Denies: muscle stiffness, neck pain. Skin: Denies: no symptoms. Neurological/Psychological: Reports: anxiety. Hematologic/Endocrine: Reports: bleeding. Immunologic/Allergic: Denies: no symptoms. All Other Systems: Reviewed and Negative Exam & Diagnostic Data Vital Signs and I&O Vital Signs Date Time Temp Pulse Resp B/P B/P Pulse O2 O2 Flow FiO2 Mean Ox Delivery Rate 09/30 1049 Room Air Room Air 09/30 0955 110/68 09/30 0653 97.8 65 18 110/68 94 Room Air 09/29 2221 70 18 136/70 98 Room Air 09/29 1943 97.9 69 18 131/83 99 Room Air 09/29 1723 98.0 74 18 125/83 95 Room Air Intake & Output 09/30 1600 09/30 0400 09/29 1600 09/29 0400 09/28 1600 09/28 0400 Intake Total 500 Output Total Balance 500 Intake, IV 500 Intake, Oral 0 Patient 249 lb 204 lb Weight Weight Reported by Patient Measurement Method Physical Exam General Appearance: well developed/nourished, no apparent distress, alert, awake , anxious, obese Head: atraumatic, normal appearance Eyes: Bilateral: normal appearance. Ears, Nose, Throat: normal pharynx, normal ENT inspection Neck: normal inspection, supple, full range of motion Respiratory: normal breath sounds, chest non-tender, no respiratory distress, quiet respiration Cardiovascular: regular rate/rhythm Gastrointestinal: normal bowel sounds, soft, tenderness Rectal: deferred Extremities: normal inspection, no edema Neurologic/Psych: no motor/sensory deficits, awake, alert, oriented x 3 Skin: intact, normal color, warm/dry Results Pertinent Lab Results: Laboratory Tests 09/30 09/29 0816 1939 Chemistry Sodium (137 - 145 mmol/L) 137 135 L Potassium (3.5 - 5.1 mmol/L) 3.6 3.8 Chloride (98 - 107 mmol/L) 101 94 L Carbon Dioxide (22 - 30 mmol/L) 25 30 Anion Gap (5 - 16) 12 11 BUN (7 - 17 mg/dL) 11 13 Creatinine (0.5 - 1.0 mg/dL) 0.6 0.7 Estimated GFR (>60 ml/min) > 60 > 60 BUN/Creatinine Ratio (7 - 25 %) 18.3 18.6 Glucose (65 - 99 mg/dL) 117 H Calcium (8.4 - 10.2 mg/dL) 9.7 Total Bilirubin (0.2 - 1.3 mg/dL) 0.9 AST (14 - 36 U/L) 29 ALT (9 - 52 U/L) 22 Alkaline Phosphatase (<127 U/L) 89 Total Protein (6.3 - 8.2 g/dL) 7.2 Albumin (3.5 - 5.0 g/dL) 4.4 Globulin (1.9 - 4.2 gm/dL) 2.8 Albumin/Globulin Ratio (1.1 - 2.2 %) 1.6 Total Beta HCG (NEGATIVE) NEGATIVE Coagulation PT (9.4 - 12.5 SEC) 10.9 INR (0.90 - 1.19) 1.00 Hematology CBC w Diff NO MAN DIFF REQ NO MAN DIFF REQ WBC (4.8 - 10.8 /CUMM) 3.9 L 4.8 RBC (4.20 - 5.40 /CUMM) 4.67 5.11 Hgb (12.0 - 16.0 G/DL) 13.4 14.5 Hct (37 - 47 %) 39.5 43.5 MCV (81.0 - 99.0 FL) 84.6 85.1 MCH (27.0 - 31.0 PG) 28.6 28.4 MCHC (33.0 - 37.0 G/DL) 33.8 33.3 RDW (11.5 - 14.5 %) 13.5 13.3 Plt Count (130 - 400 /CUMM) 248 279 MPV (7.4 - 10.4 FL) 8.3 7.9 Gran % (42.2 - 75.2 %) 24.2 L 37.4 L Lymphocytes % (20.5 - 51.1 %) 64.7 H 52.8 H Monocytes % (1.7 - 9.3 %) 8.6 7.5 Eosinophils % (0 - 5 %) 2.1 1.7 Basophils % (0.0 - 2.0 %) 0.4 0.6 Absolute Granulocytes (1.4 - 6.5 /CUMM) 0.9 L 1.8 Absolute Lymphocytes (1.2 - 3.4 /CUMM) 2.5 2.6 Absolute Monocytes (0.10 - 0.60 /CUMM) 0.3 0.4 Absolute Eosinophils (0.0 - 0.7 /CUMM) 0.1 0.1 Absolute Basophils (0.0 - 0.2 /CUMM) 0 0 Assessment/Plan Assessment/Recommendations: Assessment: Ms. Desouza is a 36 year old female with IBS who has been having pain and diarrhea for the past sevearl months and began having rectal bleeding yesterday which is likely secondary to hemmorrhoids considering the lack of any significant fall in her hgb and her history. 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 That being said, as she is otherwise stable and as her pain is improved this can be pursued further as an outpatient. Recommendations: 1. Advance diet as tolerated. 2. Use lomotil as needed for diarrhea 3. Analgesia as needed preferrably with antispasmodics 4. Local care for hemorrhoidal bleeding as needed. 5. Will tentatively plan for a repeat endoscopic work up as an outpatient. Will sign off at this time and ask that the patient contact the office to arrange for a repeat endosocpic work up when she is discharged. Problem List: 1. Abdominal pain 2. GI bleeding 3. Nausea Copies To: Abbey BARRIGA,Jo-Ann Consult Acknowledgment - Thank you for your consult request.
--- NOTE | 2017-09-30 16:18 | Discharge Summary ---
Visit Information Visit Dates Admission Date: 09/29/17 Discharge Date: 09/30/17 Hospital Course Course Attending Physician: Sola Barrios MD Primary Care Physician: Abbey BARRIGA,[facility] Hospital Course: Ms. Desouza is a 36-year-old female with a PMH of irregular heartbeat ( reportedly), hypertension, hyperlipidemia, and prior cardiac arrest (2013), advanced COPD on 3L home oxygen (reportedly), COLBY on CPAP (reportedly), GERD, depression, hypothyroidism, chronic lower extremity edema, polysubstance abuse ( quit >10 years ago), former smoker (quit 11 years ago), former alcohol use (quit 9 months ago, one type of vodka per day), bipolar disorder and nonconvulsive seizure who presents to the ED with BRBPR and abdominal pain with recent colonoscopy that showed internal hemorrhoids and benign polyps. Patient was admitted to general medicine floor for evaluation and treatment of bright red bleeding per rectum and abdominal pain. Overnight the patient demonstrated significant improvement in clinical condition , abdominal pain improved. Patient had bowel movement in the morning which was guaiac negative. Dr. Garrison was consulted, he informed considering the recent colonoscopy and history of hemorrhoids patient can be discharged on stool softeners. Patient was also morbidly obese, recommendations were made regarding controlling weight. Patient was discharged with recommendation to follow with Dr. Garrison in the office as an outpatient setting. Allergies: Coded Allergies: egg (Severe, LARYNGEAL EDEMA 08/13/17) sertraline (From ZOLOFT) (Severe, THROAT CLOSES 03/23/17) Penicillins (Intermediate, HIVES 01/05/17) amoxicillin (Intermediate, HIVES 01/05/17) lactose (Intermediate, HIVES, LACTOSE INTOLERANT 01/05/17) latex (Intermediate, HIVES 01/05/17) peanut (Intermediate, HIVES 09/30/17) valacyclovir (From VALTREX) (Intermediate, HIVES 01/05/17) Disposition Summary Disposition Principal Diagnosis: Hemorrhoids Additional Diagnosis: Anxiety Discharge Disposition: home health services Discharge Instructions General Discharge Information Code Status: Full Code Patient's Diet: Low-fat as tolerated Patient's Activity: As tolerated Follow-Up Instructions/Appts: Please follow-up with your PCP within one week of discharge. Please follow with Dr. Garrison within 1 week of discharge Medications at Discharge Discharge Medications: Continue taking these medications: Aspirin (Ecotrin*) 81 MG TABLET.DR 1 Tablet ORAL DAILY Comments: Last Taken:08/13/17 Time:1123 Albuterol Sulfate (Proair Hfa) 90 MCG HFA.AER.AD 2 Puff Inhale through mouth as needed for ASTHMA Comments: NOT TAKEN IN HOSPITAL Atorvastatin Calcium (Lipitor) 20 MG TABLET 1 Tablet ORAL DAILY Comments: NOT TAKEN IN HOSPITAL Topiramate (Topamax) 100 MG TABLET 0.5 Tablet ORAL TWICE DAILY Comments: Last Taken:08/13/17 Time:1123 Montelukast Sodium (Montelukast Sodium) 10 MG TABLET 1 Tablet ORAL DAILY Qty = 30 Comments: Last Taken:08/13/17 Time:1123 Albuterol Sulfate (Albuterol Sulfate) 2.5 MG/3 ML (0.083 %) VIAL.NEB 1 Vial Inhale Solution Q8H as needed for ASTHMA Comments: NOT TAKEN IN HOSPITAL Metoprolol Succ XL (Toprol XL) 25 MG TAB 25 Milligram ORAL DAILY Comments: Last Taken:08/13/17 Time:1123 Pantoprazole Sodium (Pantoprazole Sodium) 40 MG TABLET.DR 1 Tablet ORAL DAILY Qty = 30 Comments: NOT TAKEN IN HOSPITAL Polyethylene Glycol 3350 (Polyethylene Glycol 3350) 17 GRAM POWD.PACK 1 Packet ORAL DAILY Qty = 14 Comments: NOT TAKEN IN HOSPITAL Docusate Sodium (Colace) 100 MG CAPSULE 1 Capsule ORAL TWICE DAILY Comments: Last Taken:08/13/17 Time:1123 Lorazepam (Ativan) 0.5 MG TABLET 1 Tablet ORAL DAILY as needed for anxiety Qty = 30 Comments: Last Taken:08/13/17 Time:1130 Paroxetine HCl (Paroxetine HCl) 40 MG TABLET 1 Tablet ORAL DAILY Qty = 30 Comments: Last Taken:08/13/17 Time:1123 Metoclopramide HCl (Reglan) 5 MG TABLET 1 Tablet ORAL DAILY as needed for nausea Comments: NOT TAKEN IN HOSPITAL Cyanocobalamin (Vitamin B-12) 1,000 MCG TABLET 1 Tablet ORAL DAILY Comments: NOT TAKEN IN HOSPITAL Hydrochlorothiazide (Hydrochlorothiazide) 12.5 MG CAPSULE 1 Capsule ORAL Every night Qty = 60 Comments: NOT TAKEN IN HOSPITAL Hydrochlorothiazide (Hydrochlorothiazide) 25 MG TABLET 1 Tablet ORAL Every Morning Comments: Last Taken:08/13/17 Time:1123 Diphenoxylate HCl/Atropine (Lomotil 2.5-0.025 MG Tablet) 2.5 MG-0.025 MG TABLET 2 Tablet ORAL TWICE DAILY Comments: NOT TAKEN IN HOSPITAL Hydrocortisone (Proctosol-Hc) 2.5 % CREAM.APPL 1 Application RECTAL THREE TIMES DAILY Instructions: apply to affected area(s) Comments: NOT TAKEN IN HOSPITAL Lamotrigine (Lamotrigine) 100 MG TABLET 1 Tablet ORAL DAILY Qty = 30 Comments: Last Taken:08/13/17 Time:1123 Olopatadine HCl (Pataday) 0.2 % DROPS 1 Drop Both Eyes Every Morning Comments: NOT TAKEN IN HOSPITAL Beclomethasone Dipropionate (Qnasl) 80 MCG/ACTUATION HFA.AER.AD 2 [place] Both sides of nose DAILY Comments: NOT TAKEN IN HOSPITAL Tizanidine HCl (Tizanidine HCl) 2 MG TABLET 1 Tablet ORAL Q8H Qty = 30 Comments: Last Taken:08/13/17 Time:1123 Levothyroxine Sodium (Levothyroxine Sodium) 25 MCG TABLET 1 Tablet ORAL DAILY Pregabalin (Lyrica) 25 MG CAPSULE 1 Capsule ORAL THREE TIMES DAILY Start taking the following new medications: Anusol Hc (Anusol-Hc) 25 MG SUPP.RECT 1 Suppository RECTAL TWICE DAILY Qty = 28 No Refills Copies To: Abbey BARRIGA,Jo-Ann; Bladimir BARRIGA,Farhad Damon MD Review Statement Documenting Attending: Sola Barrios MD Other Findings: Discharged in stable condition.
== END 2017-09-30 13:59 | disposition home health service (06) | DRG 378 ==
LOC: ERH 16:04 → 2NA 21:52 → ERHI 21:52 → ENTRNSPT 22:30 → EDTRNSPTSTS 22:34 → EDTRNSPT 22:34 → 2NA 22:38 → CMPTRNSPT 22:49 → 2NA 09-30 08:22 → ENPENDDIS 09-30 10:39 → 2NA 09-30 13:59
PROVIDERS: Internal Medicine; Physician Assistant Medical
DX: K92.2 Gastrointestinal hemorrhage, unspecified (principal); Z68.41 Body mass index [BMI] 40.0-44.9, adult; E66.01 Morbid (severe) obesity due to excess calories; Z99.81 Dependence on supplemental oxygen; I10 Essential (primary) hypertension; J44.9 Chronic obstructive pulmonary disease, unspecified; F31.9 Bipolar disorder, unspecified; K21.9 Gastro-esophageal reflux disease without esophagitis; K92.1 Melena; G47.33 Obstructive sleep apnea (adult) (pediatric); E78.5 Hyperlipidemia, unspecified; I25.2 Old myocardial infarction; Z87.891 Personal history of nicotine dependence; R60.0 Localized edema; Z88.0 Allergy status to penicillin; Z88.8 Allergy status to other drugs, medicaments and biological substances; Z88.1 Allergy status to other antibiotic agents; Z91.040 Latex allergy status; Z79.82 Long term (current) use of aspirin; Z79.51 Long term (current) use of inhaled steroids; Z90.722 Acquired absence of ovaries, bilateral; Z85.43 Personal history of malignant neoplasm of ovary; Z90.49 Acquired absence of other specified parts of digestive tract; Z90.710 Acquired absence of both cervix and uterus
CPT/HCPCS: 2NAP; 36592; 82436; J3250; J3490